=== PATIENT | female | born 1970 ===

== ENCOUNTER 2020-06-29 08:02 | Day surgery (SDC) | payer OTHER, SELFPAY ==
--- NOTE | 2020-06-28 10:31 | HO.ANESPROP2 ---
Documented by User: Shruthi Huddleston 06/28/20 13:49 HPI - Anesthesia Eval Consult details Narrative: 50yo F for Colonoscopy: screening, constipation PMFSH Past Medical History Medical History Constipation Hx of mammogram Family History Family History Father Patient's father is Lung cancer Diabetes Myocardial infarction Mother Hypertension Intestinal cancer Sister Lymphoma Patient's sister is Surgical History Surgical History History of esophagogastroduodenoscopy (EGD) History of loop electrical excision procedure (LEEP) Hx of breast biopsy Hx of colonoscopy Hx of hemorrhoidectomy S/P bilateral breast lumpectomy History of Problems with Anesthesia: No Social History Social History Smoking Status: Never smoker Second Hand Smoke Exposure: No Use of substances other than those prescribed or required for medical reasons: No Have you been hit, kicked, punched, or otherwise hurt by someone within the past year? If so, by whom?: No Advance Directives: No Advance Directives Information Provided: No Meds Allergies Allergy/AdvReac Type Severity Reaction Status Date / Time No Known Allergies Allergy Unverified 05/27/20 15:35 Home Medications Medication Instructions Recorded Confirmed Type linaclotide [Linzess] 1 cap PO DAILY 06/28/20 06/28/20 History Exam Exam Date and Time: June 28, 2020 1031 Assessment and Plan Assessment Anesthesia Assessment: Chart Reviewed Documented by User: Jemma Vance 06/29/20 09:28 PMFSH Past Medical History Medical History Constipation Hx of mammogram Family History Family History Father Patient's father is Lung cancer Diabetes Myocardial infarction Mother Hypertension Intestinal cancer Sister Lymphoma Patient's sister is Family history of problems with anesthesia: No Surgical History Surgical History History of esophagogastroduodenoscopy (EGD) History of loop electrical excision procedure (LEEP) Hx of breast biopsy Hx of colonoscopy Hx of hemorrhoidectomy S/P bilateral breast lumpectomy History of Problems with Anesthesia: No Social History Social History Smoking Status: Never smoker Second Hand Smoke Exposure: No Use of substances other than those prescribed or required for medical reasons: No Have you been hit, kicked, punched, or otherwise hurt by someone within the past year? If so, by whom?: No Advance Directives: No Advance Directives Information Provided: No Meds Allergies Allergy/AdvReac Type Severity Reaction Status Date / Time No Known Allergies Allergy Unverified 05/27/20 15:35 Home Medications Medication Instructions Recorded Confirmed Type linaclotide [Linzess] 1 cap PO DAILY 06/28/20 06/28/20 History Exam Height,Weight and Vital Signs: Vital Signs Temp Pulse Resp BP Pulse Ox 06/29/20 08:37 97.0 F 64 16 93/56 L 99 Pertinent Lab Results Pertinent Lab Results: 06/29/20 08:29 Ur Preg Test Stat Laboratory Last Values Urine Test NEGATIVE (NEGATIVE) 06/29/20 08:29 Airway Mallampati Class: II TM Dist: >3cm Neck ROM: Full Heart: RRR Lungs: CTAB Assessment and Plan Assessment Anesthesia Assessment: Anesthesia Plan Discussed and Chart Reviewed Final Anesthetic Review NPO: Yes ASA Class: II Final Preanesthetic Review: No Changes in Pt Med Stat, Meds/Allgs Chart Reviewed, Consent Obtained/Reviewed and Anes Risks/Benef Reviewed Patient Risk: Low Procedure Risk: Low Anesthetic Plan Anesthetic Plan: MAC: Disposition: Standard PACU
[2020-06-29 08:37] VITALS: BP 93/56; PULSE 64; RESP 16; TEMP 36.1; O2SAT 99; BMI 24.5
[2020-06-29 08:45] LABS: UPreg QC Valid YES; Urine Pregnancy NEGATIVE (NEGATIVE)
[2020-06-29] MEDS: Lactated Ringers 1,000 ML 100 ML IVCONT (08:51)
--- NOTE | 2020-06-29 10:12 | MHC.SHP ---
Pre-Procedural Eval Section A The patient is an INPATIENT: No The History & Physical has been completed within 30 days and I have reviewed it.: No Section B Chief Complaint: Screening Details of Present Illness: Colon cancer screening--No clinical changes from original preop Relevant Family History (Specify if Yes): Yes Relevant Social History: None Present Medications: see Short Stay Collaborative assessment Medical History: Significant History (GERD, Constipation) History of Previous Operations: Relevant previous surgery/procedure and date(s) ([place] 2019 incomplete due to poor prep) Allergies: Allergies Allergy/AdvReac Type Severity Reaction Status Date / Time No Known Allergies Allergy Unverified 05/27/20 15:35 Review of Systems Sugical H&P ROS: Negative: Constitution, Cardiovascular, Respiratory, Neurological, Psychiatric, Hem-Onc, Allergic/Immunologic, Musculoskeletal and Endocrine and Yes, Specify: Gastrointestinal (left sided discomfort, constipation) Exam Surgical H&P Exam: Normal: HEENT, Normal: Heart, Normal: Lungs, Normal: Abdomen and Normal: Skin Plan Diagnosis/Plan: Unchanged (Colon cancer screening--Colonoscopy) Patient has been examined and remains a candidate for the planned procedure YES
[2020-06-29 10:46] VITALS: BP 94/56; PULSE 85; RESP 12; TEMP 36.8; O2SAT 100
--- NOTE | 2020-06-29 10:48 | PM.PROC ---
Brief Operative Note Date of procedure: 06/29/20 Pre-op diagnosis: Colon cancer screening Post-op diagnosis: other (Normal exam; previous hx of rectal bleeding and incomplete exam.) Procedure: COLNOSCOPY Anesthesia: MAC (IVY Sesay) Surgeon: Simi Amor Estimated blood loss (mL): 0 Pathology: none sent Condition: stable Disposition: PACU
--- NOTE | 2020-06-29 10:57 | MHC.SHP ---
Pre-Procedural Eval Section A The History & Physical has been completed within 30 days and I have reviewed it.: No Section B Chief Complaint: Screening Details of Present Illness: Colon cancer screening; Hx of Rectal Carcinoid Relevant Family History (Specify if Yes): No Relevant Social History: None Present Medications: see Short Stay Collaborative assessment Medical History: Significant History (diabetes, hypothyroid on replacement therapy) History of Previous Operations: Relevant previous surgery/procedure and date(s) (-2013) Allergies: Allergies Allergy/AdvReac Type Severity Reaction Status Date / Time No Known Allergies Allergy Unverified 05/27/20 15:35 Review of Systems Sugical H&P ROS: Negative: Constitution, Cardiovascular, Respiratory, Neurological, Gastrointestinal and Musculoskeletal Exam Surgical H&P Exam: Normal: HEENT, Normal: Heart, Normal: Lungs, Normal: Extremities and Normal: Skin Plan Diagnosis/Plan: Unchanged Patient has been examined and remains a candidate for the planned procedure--yes
[2020-06-29 11:01] VITALS: BP 93/58; PULSE 82; RESP 17; TEMP 36.8; O2SAT 99
[2020-06-29 11:14] VITALS: BP 92/58; PULSE 78; RESP 17; TEMP 37.3; O2SAT 99
--- NOTE | 2020-06-30 10:11 | OP_ITS ---
SURGEON: Simi Amor MD PREOPERATIVE DIAGNOSIS: POSTOPERATIVE DIAGNOSIS: Negative exam to the level of the cecum. PROCEDURE PERFORMED: Colonoscopy. ESTIMATED BLOOD LOSS: None. COMPLICATIONS: No complications. ANESTHESIA: Monitored ANESTHESIOLOGIST: Skyler Dallas CRNA ASSISTANTS:NONE SPECIMENS: No specimens removed. PREOPERATIVE DIAGNOSES: Colon cancer screening, left-sided pain. The patient has noted that the pain is less intense when her bowels move completely. This is a repeat exam due to poor prep on the last attempt at colon cancer screening. MANUAL MACHINIST: Dr. Amor. FINDINGS: Digital rectal exam revealed no specific lesions. Video colonoscope was introduced without difficulty. It was navigated into the rectosigmoid, sigmoid. There was some degree of telescoping of the colon in the region of the rectosigmoid, sigmoid (of note, this is the area the patient has some discomfort on a fairly regular basis). The scope advanced slowly into the descending, transverse, ascending colon down into the cecal cap. Appendiceal orifice was seen. Ileocecal valve was well seen. Preparation was excellent. Good mucosal detail was had on this exam. No significant lesions were appreciated. Anorectal verge was clear. PLAN: Current recommendations for repeat asymptomatic screening in a patient with a variety of clinical symptoms and a history of constipation tendency should be closer to 7 years. She will be re-seen in the office if she wishes to further discuss management of her delayed transit constipation tendency. GRAFT OR IMPLANTS: No grafts or implants. CONDITION: Postprocedure, stable. Simi Amor MD MEN/MODL / [id number] MTDD
== END 2020-06-29 12:03 | disposition home or self-care (01) ==
PROVIDERS: Nurse Practitioner; PCP Internal Medicine; Visit Provider Internal Medicine Gastroenterology
PROC: 0DJD8ZZ Inspection of Lower Intestinal Tract, Via Natural or Artificial Opening Endoscopic (ICD-10-PCS; CPT 45378; principal; 2020-06-29 09:10)
DX: Z12.11 Encounter for screening for malignant neoplasm of colon (principal)
CPT/HCPCS: 45378; 81025

== ENCOUNTER 2020-07-21 15:51 | Outpatient (REF) | payer OTHER, SELFPAY | END 2020-07-21 15:52 | disposition home or self-care (01) | LOC: HO.LAB 15:51 | PROVIDERS: PCP Internal Medicine; Visit Provider Internal Medicine | DX: Z20.828 Contact with and (suspected) exposure to other viral communicable diseases (principal) | CPT/HCPCS: C9803; U0003 ==

== ENCOUNTER → 2020-07-28 08:39 | Outpatient (BNVA) | payer OTHER, SELFPAY | PROVIDERS: PCP Internal Medicine; Referring Provider Internal Medicine; Visit Provider Nurse Practitioner | DX: Z76.89 Persons encountering health services in other specified circumstances (principal) ==

== ENCOUNTER 2020-08-25 16:40 | Outpatient (REF) | payer OTHER, SELFPAY ==
--- NOTE | 2020-08-25 | MM_ITS ---
EXAMINATION: MM SCREENING DIGITAL BREAST TOMOSYNTHESIS, BILATERAL CLINICAL INFORMATION: Screening. Asymptomatic. No known family history breast cancer. The lifetime risk of breast cancer based on the Tyrer-Cuzick Model is 6%. COMPARISON: Mammography: 07/19/2019, 06/29/2018, 06/09/2017, 10/15/2015; bilateral diagnostic breast ultrasound 10/15/2015. TECHNIQUE: Digital breast tomosynthesis is performed in both the craniocaudal and mediolateral oblique views along with computer-aided detection (CAD). Synthesized 2D images are generated from the tomosynthesis. FINDINGS: There are scattered areas of fibroglandular density (ACR BI-RADS breast composition Category b). There are scattered bilateral asymmetries similar to prior studies including nodular asymmetry 3:30 o'clock left breast and regional asymmetry inferior medial right breast. There is no developing density or interval mass or architectural abnormality. No abnormal calcifications. There are some dermal densities right axilla representing digital processing artifact and/or deodorant artifact MLO view. MM/MM tomosynthesis screening BI IMPRESSION: No significant changes from prior studies. ASSESSMENT: BI-RADS 2: Benign RECOMMENDATION: Routine annual mammography screening. This patient's information was entered into a reminder system with a target due date for their next mammogram.
== END 2020-08-25 16:41 | disposition home or self-care (01) ==
LOC: HO.MAMMO 16:40
PROVIDERS: PCP Internal Medicine; Visit Provider Internal Medicine
DX: Z12.31 Encounter for screening mammogram for malignant neoplasm of breast (principal)
CPT/HCPCS: 77063; 77067

== ENCOUNTER 2020-08-27 08:10 | Outpatient (REF) | payer OTHER, SELFPAY ==
[2020-08-27 11:05] LABS: HBsAGNum1 0.18 S/CO (0.00-0.99); HIV AB/AG Nonreactive (Nonreactive); HIV Num 1 0.05 S/CO (0.00-0.99); Hepatitis B Surface Antigen Negative (Negative)
[2020-08-27 12:04] LABS: Syphilis Screen Nonreactive (Nonreactive)
[2020-08-29 11:59] LABS: BV Int Neg Control Negative (Negative); BV Int Pos Control Positive (Positive)
[2020-09-01 03:48] LABS: HPV mRNA E6/E7 rflx Not Detected (Not Detected)
[2020-09-19 09:16] LABS: CT PCR NOT DETECTED (Not Detect.); NG PCR NOT DETECTED (Not Detect.)
== END 2020-08-27 08:11 | disposition home or self-care (01) ==
LOC: HO.LAB 08:10
PROVIDERS: PCP Internal Medicine; Referring Provider Internal Medicine; Visit Provider Obstetrics & Gynecology
DX: Z01.419 Encounter for gynecological examination (general) (routine) without abnormal findings (principal)
CPT/HCPCS: 86780; 87340; 87389; 87480; 87491; 87510; 87591; 87624; 87625; 87660; 88142

== ENCOUNTER → 2020-09-21 08:48 | Outpatient (BNVA) | payer OTHER, SELFPAY | PROVIDERS: PCP Internal Medicine; Visit Provider Obstetrics & Gynecology | DX: Z76.89 Persons encountering health services in other specified circumstances (principal) ==

== ENCOUNTER 2020-09-21 15:18 | Outpatient (REF) | payer OTHER, SELFPAY ==
--- NOTE | 2020-09-21 15:24 | US_ITS ---
EXAMINATION: US PELVIS COMPLETE CLINICAL INFORMATION: Pelvic and perineal pain. Vaginal bleeding. COMPARISON: None TECHNIQUE: Transabdominal and transvaginal ultrasound pelvis is performed. FINDINGS: On transabdominal ultrasound the uterus is anteverted measuring 7.9 cm in length, 4.0 cm in AP and 5.5 cm in transverse dimension. Endometrial thickness measures 0.9 cm. There are 3 hyperechoic foci along the endometrial cavity suspicious for small polyps. Endometrial thickness is 0.9 cm. The right ovary measures 3.3 x 2.3 x 1.7 cm and volume 6.8 mL and appears unremarkable. Previously right ovary measured 2.4 x 1.7 x 2.7 cm and volume 5.5 mL. Left ovary measures 2.9 x 3.0 x 1.6 cm and volume 7.3 mL. Previously left ovary measured 3.0 x 1.8 x 2.7 cm and volume 7.6 mL. There is no free fluid in the cul-de-sac. US/US transvaginal IMPRESSION: Probable small polyps within the endometrial canal. Recommend hysterosonogram. The rest of the uterus is unremarkable. Ovaries unremarkable. There is no free fluid in the cul-de-sac.
--- NOTE | 2020-09-21 15:24 | US_ITS ---
EXAMINATION: US PELVIS COMPLETE CLINICAL INFORMATION: Pelvic and perineal pain. Vaginal bleeding. COMPARISON: None TECHNIQUE: Transabdominal and transvaginal ultrasound pelvis is performed. FINDINGS: On transabdominal ultrasound the uterus is anteverted measuring 7.9 cm in length, 4.0 cm in AP and 5.5 cm in transverse dimension. Endometrial thickness measures 0.9 cm. There are 3 hyperechoic foci along the endometrial cavity suspicious for small polyps. Endometrial thickness is 0.9 cm. The right ovary measures 3.3 x 2.3 x 1.7 cm and volume 6.8 mL and appears unremarkable. Previously right ovary measured 2.4 x 1.7 x 2.7 cm and volume 5.5 mL. Left ovary measures 2.9 x 3.0 x 1.6 cm and volume 7.3 mL. Previously left ovary measured 3.0 x 1.8 x 2.7 cm and volume 7.6 mL. There is no free fluid in the cul-de-sac. US/US pelvic complete IMPRESSION: Probable small polyps within the endometrial canal. Recommend hysterosonogram. The rest of the uterus is unremarkable. Ovaries unremarkable. There is no free fluid in the cul-de-sac.
== END 2020-09-21 15:19 | disposition home or self-care (01) ==
LOC: HO.US 15:18
PROVIDERS: PCP Internal Medicine; Visit Provider Obstetrics & Gynecology
DX: R10.2 Pelvic and perineal pain (principal)
CPT/HCPCS: 76830; 76856

== ENCOUNTER → 2020-09-24 11:44 | Outpatient (BNVA) | payer OTHER, SELFPAY | PROVIDERS: Visit Provider Obstetrics & Gynecology | DX: Z76.89 Persons encountering health services in other specified circumstances (principal) ==

== ENCOUNTER 2020-10-21 06:04 | Day surgery (SDC) | payer OTHER, SELFPAY ==
[2020-10-15 10:57] VITALS: BMI 23.8
--- NOTE | 2020-10-20 12:11 | HO.ANESPROP2 ---
Documented by User: Shruthi Huddleston 10/20/20 12:13 HPI - Anesthesia Eval Consult details Narrative: 50yo F for D&C Diagnostic Hysteroscopy with myosure PMFSH Active Problems Active Problems: All Active Problems (Updated 07/28/20 @ 09:26 by LORRI Cortes) Family history of colon cancer (Acute) Chronic idiopathic constipation (Acute) Past Medical History Medical History Hx of mammogram Family History Family History Father Patient's father is Lung cancer Diabetes Myocardial infarction Mother Hypertension Intestinal cancer Bladder cancer Cholangiocarcinoma Sister Lymphoma Patient's sister is Surgical History Surgical History History of esophagogastroduodenoscopy (EGD) History of loop electrical excision procedure (LEEP) Hx of breast biopsy Hx of colonoscopy Hx of hemorrhoidectomy S/P bilateral breast lumpectomy Social History Social History Household Members: None Alcohol intake: current Alcohol intake frequency: holidays/special occasions only Smoking Status: Never smoker Second Hand Smoke Exposure: No Use of substances other than those prescribed or required for medical reasons: No Have you been hit, kicked, punched, or otherwise hurt by someone within the past year? If so, by whom?: No Advance Directives: No Advance Directives Information Provided: No Advance Directives on File: No Meds Allergies Allergy/AdvReac Type Severity Reaction Status Date / Time No Known Allergies Allergy Verified 09/24/20 11:45 Exam Exam Date and Time: October 20, 2020 1211 Height,Weight and Vital Signs: Height 5 ft 1 in Weight 57.153 kg Assessment and Plan Assessment Anesthesia Assessment: Chart Reviewed Documented by User: Isis Caba 10/21/20 07:41 PMFSH Past Medical History Medical History Hx of mammogram Family History Family History Father Patient's father is Lung cancer Diabetes Myocardial infarction Mother Hypertension Intestinal cancer Bladder cancer Cholangiocarcinoma Sister Lymphoma Patient's sister is Surgical History Surgical History History of esophagogastroduodenoscopy (EGD) History of loop electrical excision procedure (LEEP) Hx of breast biopsy Hx of colonoscopy Hx of hemorrhoidectomy S/P bilateral breast lumpectomy Social History Social History Household Members: None Alcohol intake: current Alcohol intake frequency: holidays/special occasions only Smoking Status: Never smoker Second Hand Smoke Exposure: No Use of substances other than those prescribed or required for medical reasons: No Have you been hit, kicked, punched, or otherwise hurt by someone within the past year? If so, by whom?: No Advance Directives: No Advance Directives Information Provided: No Advance Directives on File: No Meds Allergies Allergy/AdvReac Type Severity Reaction Status Date / Time No Known Allergies Allergy Verified 09/24/20 11:45 Exam Airway Mallampati Class: II TM Dist: >3cm Neck ROM: Full Assessment and Plan Assessment Anesthesia Assessment: Anesthesia Plan Discussed and Chart Reviewed Final Anesthetic Review NPO: Yes ASA Class: I Final Preanesthetic Review: No Changes in Pt Med Stat, Meds/Allgs Chart Reviewed, Consent Obtained/Reviewed and Anes Risks/Benef Reviewed Patient Risk: Low Procedure Risk: Low Assessment/Block/Sedation in SS: Assess/Block/Sedation-SS Anesthetic Plan Anesthetic Plan: MAC: Disposition: Standard PACU
[2020-10-21 06:21] VITALS: BP 101/72; PULSE 63; RESP 18; TEMP 36.8; O2SAT 98
[2020-10-21 07:05] LABS: HCG Quantitative < 2 mIU/mL
--- NOTE | 2020-10-21 07:23 | MHC.SHP ---
Pre-Procedural Eval Section A The patient is an INPATIENT: No Changes since office visit: No Cold of Flu in the past 2 weeks, No New Medical Problems, No Changes in Medication and No Patient answered all questions The History & Physical has been completed within 30 days and I have reviewed it.: Yes Section B Chief Complaint: left lower quadrant pain Allergies: Allergies Allergy/AdvReac Type Severity Reaction Status Date / Time No Known Allergies Allergy Verified 09/24/20 11:45 Plan I have reviewed the history and physical and performed a pertinent physical examination on my patient. No changes have occurred unless specified.
[2020-10-21] MEDS: Lactated Ringers 1,000 ML 50 ML IVCONT (07:26)
[2020-10-21 08:00] VITALS: BP 100/68; PULSE 70; RESP 16; TEMP 36.7; O2SAT 94
[2020-10-21] MEDS: Acetaminophen 325 MG TABLET 650 MG PO (08:11)
[2020-10-21] MEDS: oxyCODONE HCl Immed Release 5 MG TABLET PO (08:12)
--- NOTE | 2020-10-21 08:12 | W.PM.OPN ---
Operative Note Operative Note Date of Service: 10/21/20 Narrative: Ms. Loving is a 50 year old with findings suspicious for endometrial polyps on US. She presents today for hysteroscopy d&c for diagnosis and treatment. Surgical Risks: The patient was informed of the risks and benefits of a hysteroscopy with dilation and curettage. Risks included but were not limited to bleeding, infection, injury to the vulva, vagina, or cervix, and uterine perforation with possible need for further surgery. The patient expressed understanding of the risks involved, all questions were answered, and the patient consented to the procedure. The patient was taken to the operating room where a time out was confirmed to confirm correct patient and correct procedure. Adequate IV sedation was established. The patient was then positioned on the operating table in the dorsal lithotomy position with her legs supported using stirrups. All pressure points were padded and a warm blanket was placed to maintain control of core body temperature. The patient was then prepped and draped in the usual sterile fashion. A straight catheter was inserted into the bladder and minimal urine was obtained as the patient had voided just prior to the procedure. A bivalve speculum was then inserted into the vagina. The anterior lip of the cervix was visualized and grasped using a single tooth tenaculum. The cervix was adequately dilated using Hunt dilators for the introduction of the hysteroscope. The hysteroscope was introduced under direct visualization using normal saline solution as the distending media. The hysteroscope was advanced to the fundus and the entire uterine cavity was inspected. No discrete polyps or fibroids were noted; however, the anterior wall was coated with polypoid appearing tissue. []The myosure device was advanced to the fundus and sharp curettage was performed of the anterior wall. The hysteroscope with myosure retracted within the sleeve was then removed and a sharp curetting was performed starting at the 12 o?clock position and rotating a total of 360 degrees in order to cover all surfaces. Endometrial tissue was obtained and was sent to pathology. Following the curetting, good hemostasis was noted. The single-tooth tenaculum was removed from the anterior lip of the cervix and hemostasis was also noted at the tenaculum puncture sites. The speculum was then removed from the vagina. At the end of the procedure, all needle, sponge, and instrument counts were noted to be correct x2. The patient was transferred to the recovery room in stable condition.
[2020-10-21] MEDS: ondansetron HCL 4 MG/2 ML VIAL IVPUSH (08:13)
[2020-10-21 08:15] VITALS: BP 100/73; PULSE 67; RESP 16; O2SAT 96
[2020-10-21 08:30] VITALS: BP 103/70; PULSE 60; RESP 16; O2SAT 97
[2020-10-21 08:45] VITALS: BP 96/60; PULSE 52; RESP 16; TEMP 36.7; O2SAT 98
[2020-10-21 08:59] VITALS: BP 92/56; PULSE 53; RESP 16; TEMP 36.7; O2SAT 98
== END 2020-10-21 09:18 | disposition home or self-care (01) ==
LOC: HO.SSS 06:05
PROVIDERS: PCP Internal Medicine; Visit Provider Obstetrics & Gynecology
PROC: 0UDB8ZX Extraction of Endometrium, Via Natural or Artificial Opening Endoscopic, Diagnostic (ICD-10-PCS; CPT 58558; principal; 2020-10-21 07:30)
DX: N84.0 Polyp of corpus uteri (principal); Z80.52 Family history of malignant neoplasm of bladder; Z80.0 Family history of malignant neoplasm of digestive organs; Z85.09 Personal history of malignant neoplasm of other digestive organs; Z80.1 Family history of malignant neoplasm of trachea, bronchus and lung; Z80.7 Family history of other malignant neoplasms of lymphoid, hematopoietic and related tissues
CPT/HCPCS: 58558; 36415; 84702; 88305; J1885; J2405; J3010

== ENCOUNTER 2021-01-31 09:54 | Emergency (ER) | payer OTHER, SELFPAY ==
--- NOTE | ~2021-01-31 | XR_ITS ---
EXAMINATION: XR CHEST CLINICAL INFORMATION: Chest pain. COMPARISON: None TECHNIQUE: Frontal view of the chest was obtained. FINDINGS: No significant abnormality is noted involving the heart, lungs, mediastinum, bony thorax or soft tissues. XR/XR chest 1V IMPRESSION: Unremarkable chest exam
[2021-01-31 10:00] VITALS: BP 123/73; PULSE 56; O2SAT 100
[2021-01-31 10:15] VITALS: BP 98/77; PULSE 54; RESP 18; TEMP 36.4; O2SAT 100; BMI 25.0
--- NOTE | 2021-01-31 10:24 | ED_ITS ---
HPI - Chest Pain General Chief Complaint: Chest Pain Stated Complaint: CHEST PAIN X'S 3 WEKS Time Seen by Provider: 01/31/21 10:24 Source: patient Mode of arrival: EMS Limitations: no limitations History of Present Illness HPI narrative: Patient with chest pain for weeks, at night while lying down with radiation into the back. Some dyspepsia. Today while driving to work patient had chest pain going into the left arm. patient exercises frequently with no chest pain. Mother and father did not have CAD, she has a sister who is a diabetic that had a stroke complaint: chest heaviness Onset (ago): minute(s) Timing of current episode: constant Prior episodes: Yes Onset: during rest Pain location: substernal Pain radiation: left arm Severity: moderate Quality: tightness Relieving factors: nothing Exacerbating factors: nothing Treatment prior to arrival: aspirin Risk Factors Coronary artery disease risk factors: none Related Data Previous Rx's Medication Instructions Recorded pantoprazole [Protonix] 40 mg PO DAILY #20 tab 01/31/21 Allergies Allergy/AdvReac Type Severity Reaction Status Date / Time No Known Allergies Allergy Verified 09/24/20 11:45 Review of Systems Constitutional: Constitutional: Reports no additional constitutional com plaints Eyes: Eyes: Reports no additional eye complaints ENT: Denies dizziness Cardiovascular: Cardiovascular: Reports no additional cardiovascular complaints Respiratory: Respiratory: Reports as per HPI Gastrointestinal: Gastrointestinal: Reports no additional gastrointestinal complaints Genitourinary: Genitourinary: Reports no additional female genitourinary complaints Musculoskeletal: Musculoskeletal: Reports no additional musculoskeletal complaints Integumentary/Breasts: Skin/Breast: Denies rash Neurologic: Reports system reviewed and no additional complaints, except as documented, Denies dizziness and Denies Sensory deficit (Neuro) Psychiatric: Psychiatric: Denies anxiety [facility] Past Medical History Medical History Hx of mammogram Surgical History History of esophagogastroduodenoscopy (EGD) History of hysteroscopy History of loop electrical excision procedure (LEEP) Hx of breast biopsy Hx of colonoscopy Hx of hemorrhoidectomy S/P bilateral breast lumpectomy Family History Family History Father Patient's father is Lung cancer Diabetes Myocardial infarction Mother Hypertension Intestinal cancer Bladder cancer Cholangiocarcinoma Sister Lymphoma Patient's sister is Social History Social History Household Members: None Alcohol intake: current Alcohol intake frequency: holidays/special occasions only Smoking Status: Never smoker Second Hand Smoke Exposure: No Advance Directives: No Advance Directives Information Provided: No Patient : No Physical Exam Vital Signs: Vital Signs: Last Vital Signs Temp 97.5 F 01/31/21 10:15 Pulse 54 01/31/21 10:15 Resp 18 01/31/21 10:15 BP 98/77 01/31/21 10:15 Pulse Ox 100 01/31/21 10:15 Body Mass Index 25.0 Const: General: healthy appearing Nutritional Appearance: average body habitus Orientation/consciousness: oriented to person and patient oriented x3 Limitations: no limitations HENMT: Head: Yes normal to inspection Ears: external ears normal General nose exam: Normal external nose present Mouth: Normal oral and palatal mucosa present and oropharynx normal Throat: Yes posterior oropharynx normal Eyes: General: appearance normal, both eyes and all related structures Neck: Other: supple Neck: Yes normal visual inspection Chest: Chest palpation & inspection: normal inspection of the chest Resp: Auscultation: clear to auscultation bilaterally Cardio: Jugular venous distension: no JVD Rate: regular rate Rhythm: r egular rhythm Heart sounds: S1 normal heart sound present and S2 normal heart sound present GI: Inspection: Yes normal to inspection Palpation (GI): Soft to palpation, nontender and No hepatosplenomegaly present Auscultation: normal bowel sounds : General: Yes no CVA tenderness Back/Spine/Pelvis: Back: no CVA tenderness Skin: General skin exam: no rashes or lesions noted Neuro: General: oriented to person and patient oriented x3 Cranial nerves: Yes CN's II-XII intact bilaterally Motor exam (neuro): 5/5 motor strength present throughout Sensory Exam: No Sensory deficit (Neuro) Extrem: General: Yes normal to inspection Psych: Appearance: grossly normal Course Course Course Narrative: with weeks of pain mostly at night with lying down and pain into the back, I suspect a GI and esophagus issue. EKG normal, troponin negative. Will place patient on PPI and have them follow up with PMD in next couple of days. MDM - Chest Pain Lab Data Result diagrams: 01/31/21 10:55 01/31/21 10:54 Labs: Lab Results 01/31/21 01/31/21 01/31/21 Range/Units 10:54 10:54 10:55 WBC 7.7 (4.8-10.8) X10*3/uL RBC 4.51 (4.20-5.50) X10*6/uL Hgb 12.9 (12.0-16.0) g/dl Hct 39.5 (37-47) % MCV 87.6 (80-98) fL MCH 28.6 (27.0-33.0) pg MCHC 32.7 (31.0-35.0) g/dl RDW 13.2 (11.0-16.0) % Plt Count 245 (160-400) X10*3/uL MPV 10.5 (9.4-12.3) fL Immature Gran % (Auto) 0.3 (0.0-0.4) % Neut % (Auto) 65.0 (45-73) % Lymph % (Auto) 23.8 (20-40) % Cam[place] % (Auto) 5.8 (2-11) % Eos % (Auto) 4.3 H (0-4) % Baso % (Auto) 0.8 (0-2) % Lymph # (Auto) 1.8 (1.2-4.9) X10*3/uL [place] # (Auto) 0.5 (0.1-1.2) X10*3/uL Eos # (Auto) 0.3 (0.0-0.4) X10*3/uL Baso # (Auto) 0.1 (0.0-0.2) X10*3/uL Abs Immat Gran (auto) 0.02 (0.00-0.03) X10*3/uL Absolute Neuts (auto) 5.0 (2.0-8.3) X10*3/uL Absolute Nucleated RBC 0.000 (0.0-0.012) X10*3/uL Nucleated RBC % (auto) 0.0 (0.0-0.2) /100WBC Sodium 138 (135-145) mmol/L Potassium 4.4 (3.3-5.1) mmol/L Chloride 106 (96-108) mmol/L Carbon Dioxide 25 (22-29) mmol/L Anion Gap 11 L (12-20) BUN 14 (9-16) mg/dL Creatinine 0.72 (0.5-1.4) mg/dL Estim Creat Clear Calc 85.9 Estimated GFR > 60 Random Glucose 79 (60-115) mg/dL Calcium 8.9 (8.4-10.2) mg/dL Troponin I High Sens < 3.5 (<3.5-17.0) ng/L ECG Data ECG #1: Attestation: I personally reviewed and interpreted this ECG as follows: Interpretation: normal sinus rate 50, bradycardia, no st or twave changes Discharge Plan Discharge Clinical Impression: Gastritis and duodenitis Chest pain Qualifiers: Chest pain type: unspecified Qualified Code(s): R07.9 - Chest pain, unspecified Patient Disposition: Home, Self-Care Instructions: Chest Pain (ED), Gastritis (ED) Prescriptions: New pantoprazole [Protonix] 40 mg tablet,delayed release (DR/EC) 40 mg PO DAILY Qty: 20 RF: 0 Referrals: Po,Dot Victor MD [Primary Care Provider] - 2 days Stand Alone Forms: Work/School Release
--- NOTE | 2021-01-31 10:28 | ECG_ITS ---
Test Reason : CHEST PAIN Blood Pressure : / mmHG Vent. Rate : 052 BPM Atrial Rate : 052 BPM P-R Int : 116 ms QRS Dur : 074 ms QT Int : 446 ms P-R-T Axes : 066 016 026 degrees QTc Int : 414 ms Sinus bradycardia Septal infarct , age undetermined Abnormal ECG When compared with ECG of 09-OCT-2005 22:47, Septal infarct is now Present Referred By: Frank Robb Electronically Signed By:BHUPINDER SOLORIO
[2021-01-31 10:59] LABS: MANUAL DIFF FLAG NO
[2021-01-31 11:02] LABS: Basophils Absolute Auto 0.1 X10*3/uL (0.0-0.2); Basophils Percent Auto 0.8 % (0-2); Eosinophils Absolute Auto 0.3 X10*3/uL (0.0-0.4); Eosinophils Percent Auto 4.3 % (0-4); Hematocrit 39.5 % (37-47); Hemoglobin 12.9 g/dl (12.0-16.0); Imm Gran Abs Auto 0.02 X10*3/uL (0.00-0.03); Imm Gran Pct Auto 0.3 % (0.0-0.4); Lymphocytes Absolute Auto 1.8 X10*3/uL (1.2-4.9); Lymphocytes Percent Auto 23.8 % (20-40); Mean Corpuscular HGB Conc 32.7 g/dl (31.0-35.0); Mean Corpuscular Hemoglobin 28.6 pg (27.0-33.0); Mean Corpuscular Volume 87.6 fL (80-98); Mean Platelet Volume 10.5 fL (9.4-12.3); Monocytes Absolute Auto 0.5 X10*3/uL (0.1-1.2); Monocytes Percent Auto 5.8 % (2-11); Platelet Count 245 X10*3/uL (160-400); Red Blood Count 4.51 X10*6/uL (4.20-5.50); Red Cell Distribution Width 13.2 % (11.0-16.0); White Blood Count 7.7 X10*3/uL (4.8-10.8)
[2021-01-31 11:27] LABS: Anion Gap 11 (12-20); Blood Urea Nitrogen 14 mg/dL (9-16); Calcium 8.9 mg/dL (8.4-10.2); Carbon Dioxide 25 mmol/L (22-29); Chloride 106 mmol/L (96-108); Creatinine Clr Calc Pharmacy 85.9; Estimated Glomerular Filt Rate > 60; Glucose Random 79 mg/dL (60-115); Potassium 4.4 mmol/L (3.3-5.1); Sodium 138 mmol/L (135-145)
[2021-01-31 11:34] LABS: Troponin-I High Sensitivity < 3.5 ng/L (<3.5-17.0)
== END 2021-01-31 13:19 | disposition home or self-care (01) ==
PROVIDERS: Emergency Provider Emergency Medicine; PCP Internal Medicine
DX: R07.9 Chest pain, unspecified (principal); K52.81 Eosinophilic gastritis or gastroenteritis; R00.1 Bradycardia, unspecified
CPT/HCPCS: 36415; 71045; 80048; 84484; 85025; 93005; 99283

== ENCOUNTER 2021-06-14 13:07 | Outpatient (REF) | payer OTHER, SELFPAY ==
[2021-06-14 13:31] LABS: MANUAL DIFF FLAG NO
[2021-06-14 13:55] LABS: Basophils Absolute Auto 0.1 X10*3/uL (0.0-0.2); Basophils Percent Auto 0.8 % (0-2); Eosinophils Absolute Auto 0.2 X10*3/uL (0.0-0.4); Eosinophils Percent Auto 2.9 % (0-4); Hemoglobin 13.5 g/dl (12.0-16.0); Imm Gran Abs Auto 0.02 X10*3/uL (0.00-0.03); Imm Gran Pct Auto 0.3 % (0.0-0.4); Lymphocytes Absolute Auto 1.7 X10*3/uL (1.2-4.9); Lymphocytes Percent Auto 22.8 % (20-40); Mean Corpuscular HGB Conc 32.1 g/dl (31.0-35.0); Mean Corpuscular Hemoglobin 28.2 pg (27.0-33.0); Mean Corpuscular Volume 87.7 fL (80-98); Mean Platelet Volume 11.2 fL (9.4-12.3); Monocytes Absolute Auto 0.5 X10*3/uL (0.1-1.2); Neutrophils Percent Auto 66.2 % (45-73); Platelet Count 263 X10*3/uL (160-400); Red Blood Count 4.79 X10*6/uL (4.20-5.50); Red Cell Distribution Width 12.8 % (11.0-16.0); White Blood Count 7.6 X10*3/uL (4.8-10.8)
[2021-06-14 14:00] LABS: Appearance Urine CLEAR; Color Urine YELLOW; Glucose Urine UA NEG (NEG); Leukocyte Esterase Urine NEG (NEG); Nitrite Urine NEG (NEG); Urine Blood NEG (NEG); Urine Ketones NEG (NEG); Urine Protein NEG (NEG-TRACE)
[2021-06-14 14:16] LABS: RBC Urine 0-2 /HPF (0); Squamous Epithelial Cell Urine 2+ /LPF
[2021-06-14 14:17] LABS: WBC Urine 0-2 /HPF (0-4)
[2021-06-14 14:26] LABS: Alanine Aminotransferase 11 U/L (0-31); Albumin Level 4.2 g/dL (3.5-5.0); Alkaline Phosphatase 71 U/L (39-117); Anion Gap 10 (12-20); Aspartate Amino Transferase 15 U/L (5-31); Bilirubin Total 0.4 mg/dL (0.0-1.0); Blood Urea Nitrogen 10 mg/dL (9-16); Carbon Dioxide 27 mmol/L (22-29); Chloride 106 mmol/L (96-108); Cholesterol 162 mg/dL; Estimated Glomerular Filt Rate > 60; Glucose Random 86 mg/dL (60-115); HDL Cholesterol 63 mg/dL; LDL Cholesterol Calculated 82 mg/dl; Potassium 4.6 mmol/L (3.3-5.1); Sodium 138 mmol/L (135-145); Total Protein 7.3 g/dL (6.5-8.0); Triglycerides 89 mg/dL
[2021-06-14 14:41] LABS: Free T4 (Free Thyroxine) 0.85 ng/dL (0.71-1.85); Vitamin D 25-OH Total 12.1 ng/mL (>30)
[2021-06-14 15:04] LABS: Folate 15.9 ng/mL (> or = 4.0); Vitamin B12 510 pg/mL (200-900)
== END 2021-06-14 13:08 | disposition home or self-care (01) ==
LOC: HO.LAB 13:07
PROVIDERS: PCP Internal Medicine; Visit Provider Internal Medicine
DX: K21.9 Gastro-esophageal reflux disease without esophagitis (principal); E78.00 Pure hypercholesterolemia, unspecified; R22.32 Localized swelling, mass and lump, left upper limb
CPT/HCPCS: 36415; 80053; 80061; 81001; 82306; 82607; 82746; 84439; 84443; 85025

== ENCOUNTER 2021-08-11 14:32 | Outpatient (REF) | payer OTHER, SELFPAY ==
[2021-08-13 06:01] LABS: CA-125 7 U/mL (<35)
== END 2021-08-11 14:33 | disposition home or self-care (01) ==
LOC: HO.LAB 14:32
PROVIDERS: PCP Internal Medicine; Visit Provider Physician Assistant
DX: Z80.41 Family history of malignant neoplasm of ovary (principal)
CPT/HCPCS: 36415; 86304

== ENCOUNTER 2021-08-27 08:13 | Outpatient (REF) | payer OTHER, SELFPAY | END 2021-08-27 08:14 | disposition home or self-care (01) | LOC: HO.MAMMO 08:13 | PROVIDERS: Visit Provider Internal Medicine | DX: Z13.89 Encounter for screening for other disorder (principal) ==

== ENCOUNTER 2021-08-29 13:22 | Outpatient (REF) | payer OTHER, SELFPAY ==
[2021-08-29 15:41] LABS: Syphilis Screen Nonreactive (Nonreactive)
[2021-08-30 04:35] LABS: ~HepC Num1 0.07 S/CO (0.00-0.79); ~Hepatitis C Antibody Nonreactive (Nonreactive)
[2021-08-30 04:39] LABS: HBc Num1 0.07 S/CO (0.00-0.79); HIV AB/AG Nonreactive (Nonreactive); HIV Num 1 0.07 S/CO (0.00-0.99); Hepatitis B Core Antibody Nonreactive (Nonreactive)
[2021-08-30 05:46] LABS: CT PCR NOT DETECTED (Not Detect.); NG PCR NOT DETECTED (Not Detect.)
[2021-08-30 09:32] LABS: BV Int Neg Control Negative (Negative); BV Int Pos Control Positive (Positive)
== END 2021-08-29 13:23 | disposition home or self-care (01) ==
LOC: HO.LAB 13:22
PROVIDERS: PCP Internal Medicine; Visit Provider Advanced Practice Midwife
DX: Z01.419 Encounter for gynecological examination (general) (routine) without abnormal findings (principal); R10.2 Pelvic and perineal pain; R30.0 Dysuria; N92.0 Excessive and frequent menstruation with regular cycle; R22.32 Localized swelling, mass and lump, left upper limb; Z11.3 Encounter for screening for infections with a predominantly sexual mode of transmission; Z11.8 Encounter for screening for other infectious and parasitic diseases; Z11.59 Encounter for screening for other viral diseases; Z11.4 Encounter for screening for human immunodeficiency virus [HIV]; Z80.41 Family history of malignant neoplasm of ovary; Z80.0 Family history of malignant neoplasm of digestive organs
CPT/HCPCS: 36415; 81003; 86704; 86780; 86803; 87389; 87480; 87491; 87510; 87591; 87660

== ENCOUNTER → 2021-08-30 15:15 | Outpatient (BNVA) | payer OTHER, SELFPAY | PROVIDERS: PCP Internal Medicine; Referring Provider Internal Medicine; Visit Provider Surgery ==

== ENCOUNTER → 2021-09-05 07:27 | Outpatient (REF) | payer OTHER, SELFPAY ==
--- NOTE | ~2021-09-05 | NM_ITS ---
EXAMINATION: RADIONUCLIDE SOLID FOOD GASTRIC EMPTYING 4-HOUR STUDY CLINICAL INFORMATION: Abdominal distention (gaseous). COMPARISON: No previous gastric emptying study is available for comparison. TECHNIQUE: A standard meal consisting of 4 oz of Egg Beaters brand equivalent tagged with 900 microcuries Tc-99m Sulfur Colloid, 8 oz water and 2 slices of toast with jelly was administered orally to the patient. Images were obtained using a dual head gamma camera in the anterior and posterior projections over of the stomach immediately post ingestion and at hourly intervals up to 4 hours post ingestion. The anterior and posterior counts at each time interval were averaged using the geometric mean and expressed as percentage of the immediate post ingestion counts. FINDINGS: There is good visualization of activity in the stomach immediately post ingestion. As the study progresses, there is good clearance of activity from the stomach and visualization of progressively increasing small bowel activity. By the end of the study, there is almost no retention noted in the stomach. Retention in the stomach at each time interval was: 1 hour 85% (normal 37%-90%) 2 hours 24% (normal 30%-60%) 3 hours 11% 4 hours 5% (normal 0%-10%) NM/NM gastric emptying study IMPRESSION: Normal 4-hour solid food gastric emptying study.
== END ==
LOC: HO.NUCMED 07:27
PROVIDERS: Visit Provider Physician Assistant
DX: R14.0 Abdominal distension (gaseous) (principal)
CPT/HCPCS: 78264; A9541

== ENCOUNTER 2021-09-21 13:23 | Outpatient (REF) | payer OTHER, SELFPAY ==
--- NOTE | ~2021-09-21 | MM_ITS ---
EXAMINATION: MM DIAGNOSTIC DIGITAL BREAST TOMOSYNTHESIS, BILATERAL US DIAGNOSTIC ULTRASOUND BREAST, LEFT CLINICAL INFORMATION: Fullness at junction upper arm and axilla noted by patient for several months. No breast palpable abnormality or discharge. Due for yearly. The lifetime risk of breast cancer based on the Tyrer-Cuzick Model is 7%. COMPARISON: Mammography: 08/25/2020, 07/19/2019, 06/29/2018, 06/09/2017, 10/15/2015 TECHNIQUE: Digital breast tomosynthesis is performed in both the craniocaudal and mediolateral oblique views along with computer-aided detection (CAD). Synthesized 2D images are generated from the tomosynthesis. Additional exaggerated left CC view is provided. Ultrasound left breast/axilla is performed using grayscale imaging and color Doppler without and with harmonics. Patient is able to point to area at time of imaging. FINDINGS: There are scattered areas of fibroglandular density (ACR BI-RADS breast composition Category b). There are scattered bilateral parenchymal asymmetries similar to prior studies. There is no developing density or interval mass or architectural abnormality. Small nodular asymmetry mid outer left breast and parenchymal asymmetry posterior inferior medial right breast are stable. There is no architectural abnormality. No abnormal calcifications. No adenopathy. Skin contours are smooth. Ultrasound demonstrates no lymphadenopathy left axilla. There is no cystic or solid mass. No skin thickening or edema tracking in soft tissue planes. Results are discussed with the patient at time of visit. If there is clinical concern for palpable fullness between left upper axilla and upper arm, further assessment with MRI may be considered. MM/MM tomosynthesis diagnostic BI IMPRESSION: 1. Mammography shows no significant changes from prior exams. 2. Unremarkable targeted left breast ultrasound. ASSESSMENT: BI-RADS 2: Benign RECOMMENDATION: 1. Patient should be managed based on the clinical impression. 2. Otherwise, routine annual screening mammography. This patient's information was entered into a reminder system with a target due date for their next mammogram.
== END 2021-09-21 13:24 | disposition home or self-care (01) ==
LOC: HO.MAMMO 13:23
PROVIDERS: PCP Internal Medicine; Visit Provider Advanced Practice Midwife
DX: R22.32 Localized swelling, mass and lump, left upper limb (principal)
CPT/HCPCS: 76642; 77062; 77066

== ENCOUNTER 2021-10-05 13:30 | Outpatient (REF) | payer OTHER, SELFPAY ==
--- NOTE | ~2021-10-05 | US_ITS ---
EXAMINATION: US PELVIS CLINICAL INFORMATION: Pain COMPARISON: Previous pelvic ultrasound most recent September 2020 TECHNIQUE: Ultrasound of the pelvis is performed using both transabdominal and transvaginal transducers along with Doppler. Transvaginal imaging is performed due to inadequate visualization transabdominally. FINDINGS: The uterus is anteverted and measures 10 x 4 x 5 cm in dimension. No focal uterine lesion is seen. Endometrial thickness is normal measuring 0.8 cm. The ovaries are normal-appearing. The right ovary measures 2 x 1.6 x 1.9 cm. Left ovary measures 2.8 x 1.4 x 1.3 cm. There is a small amount of fluid in the pelvis. US/US pelvic and transvaginal IMPRESSION: Normal pelvic ultrasound.
== END 2021-10-05 13:31 | disposition home or self-care (01) ==
LOC: HO.US 13:30
PROVIDERS: Visit Provider Advanced Practice Midwife
DX: R10.2 Pelvic and perineal pain (principal)
CPT/HCPCS: 76830; 76856

== ENCOUNTER → 2021-10-12 10:47 | Outpatient (BNVA) | payer OTHER, SELFPAY | PROVIDERS: PCP Internal Medicine; Visit Provider Advanced Practice Midwife ==

== ENCOUNTER 2021-11-04 09:12 | Outpatient (REF) | payer OTHER, SELFPAY | END 2021-11-04 09:13 | disposition home or self-care (01) | LOC: HO.LAB 09:12 | PROVIDERS: Visit Provider Advanced Practice Midwife | DX: N92.0 Excessive and frequent menstruation with regular cycle (principal); N76.1 Subacute and chronic vaginitis | CPT/HCPCS: 58100; 88305 ==

== ENCOUNTER → 2021-11-18 11:41 | Outpatient (BNVA) | payer OTHER, SELFPAY | PROVIDERS: Visit Provider Advanced Practice Midwife ==

== ENCOUNTER → 2022-01-03 08:38 | Outpatient (BNVA) | payer OTHER, SELFPAY | PROVIDERS: Visit Provider Obstetrics & Gynecology | DX: Z13.89 Encounter for screening for other disorder (principal) ==

== ENCOUNTER 2022-01-06 07:36 | Day surgery (SDC) | payer OTHER, SELFPAY ==
--- NOTE | 2022-01-05 09:08 | P.CONAN_ITS ---
Documented by User: Shruthi Huddleston NP 01/05/22 09:08 HPI - Anesthesia Eval Consult details Narrative: 51yo F for D&C Hysteroscopy, possible polypectomy/myomectomy s/p D&C 10/2020 with MAC [facility] Active Problems Active Problems: All Active Problems (Updated 01/03/22 @ 08:48 by John Luther MD) Abnormal uterine bleeding (Acute) Chronic nausea (Acute) Vitamin D deficiency (Acute) Postprandial abdominal bloating (Acute) Family history of ovarian cancer (Acute) Pelvic pain (Acute) Annual physical exam (Acute) Mass of left axilla (Acute) GERD (gastroesophageal reflux disease) (Acute) Chronic idiopathic constipation (Acute) Past Medical History Medical History Family history of colon cancer GERD (gastroesophageal reflux disease) Family History Family History Father Patient's father is Lung cancer Diabetes Myocardial infarction Mother Hypertension Intestinal cancer Bladder cancer Cholangiocarcinoma Sister Lymphoma Patient's sister is Family history of problems with anesthesia: No Surgical History Surgical History History of esophagogastroduodenoscopy (EGD) History of eyelid surgery History of hysteroscopy History of loop electrical excision procedure (LEEP) Hx of breast biopsy Hx of colonoscopy Hx of hemorrhoidectomy S/P bilateral breast lumpectomy History of Problems with Anesthesia: No Social History Social History Household Members: None Housing: Apartment Alcohol intake: current Alcohol intake frequency: holidays/special occasions only Alcohol type: wine Patient Tobacco Use Status: Never used Tobacco e-Cigarette/Vaping Use: Never Used Second Hand Smoke Exposure: No Use of substances other than those prescribed or required for medical reasons: No Are you DNR?: No Advance Directives: No Advance Directives Information Provided: Yes service: No Current occupational status: employed 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 Allergies Allergy/AdvReac Type Severity Reaction Status Date / Time No Known Allergies Allergy Verified 11/18/21 11:42 Exam Exam Date and Time: January 05, 2022 0908 Assessment and Plan Assessment Anesthesia Assessment: Chart Reviewed Final Anesthetic Review Family History of Problems with Anesthesia: No History of Problems with Anesthesia: No Documented by User: Jonathon Baez MD 01/06/22 11:05 PMF Past Medical History Medical History Family history of colon cancer GERD (gastroesophageal reflux disease) Family History Family History Father Patient's father is Lung cancer Diabetes Myocardial infarction Mother Hypertension Intestinal cancer Bladder cancer Cholangiocarcinoma Sister Lymphoma Patient's sister is Surgical History Surgical History History of esophagogastroduodenoscopy (EGD) History of eyelid surgery History of hysteroscopy History of loop electrical excision procedure (LEEP) Hx of breast biopsy Hx of colonoscopy Hx of hemorrhoidectomy S/P bilateral breast lumpectomy Social History Social History Household Members: None Housing: Apartment Alcohol intake: current Alcohol intake frequency: holidays/special occasions only Alcohol type: wine Patient Tobacco Use Status: Never used Tobacco e-Cigarette/Vaping Use: Never Used Second Hand Smoke Exposure: No Use of substances other than those prescribed or required for medical reasons: No Are you DNR?: No Advance Directives: No Advance Directives Information Provided: Yes service: No Current occupational status: employed 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
[2022-01-06] VITALS (8 sets, daily range): BP systolic 98–113; BP diastolic 58–72; PULSE 59–89; RESP 12–16; TEMP 36.2–36.6; O2SAT 96–100; BMI 24.5
[2022-01-06 09:59] LABS: UPreg QC Valid YES; Urine Pregnancy NEGATIVE (NEGATIVE)
--- NOTE | 2022-01-06 10:49 | MHC.SHP ---
Pre-Procedural Eval Section A Date of Service: 01/06/22 The patient is an INPATIENT: No Changes since office visit: No Cold of Flu in the past 2 weeks, No New Medical Problems, No Changes in Medication and No Patient answered all questions The History & Physical has been completed within 30 days and I have reviewed it.: Yes Section B Chief Complaint: bleeding Allergies: Allergies Allergy/AdvReac Type Severity Reaction Status Date / Time No Known Allergies Allergy Verified 11/18/21 11:42 Plan Diagnosis/Plan: Unchanged I have reviewed the history and physical and performed a pertinent physical examination on my patient. No changes have occurred unless specified.
--- NOTE | 2022-01-06 13:10 | P.BOP_ITS ---
Brief Operative Note Date of Service: 01/06/22 Pre-op diagnosis: Abnormal uterine bleeding fragments of endometrial polyp on endometrial biopsy pathology Post-op diagnosis: same (Normal endometrial cavity) Procedure: Hysteroscopy D&C Surgeon: John Luther MD Anesthesia: MAC Was an Device Processing Engineer used for this Procedure?: No Estimated blood loss (mL): 0 Pathology: other (Endometrial Scrapping. ) Condition: stable Disposition: PACU
--- NOTE | 2022-01-06 13:11 | P.OP_ITS ---
Operative Note Operative Note Date of Service: 01/06/22 Narrative: Preop Diagnosis: Abnormal uterine bleeding, fragments of Endometrial polyp on endometrial biopsy pathology Operation: Diagnostic Hysteroscopy, Dilataion & Curettage Post Op Diagnosis: Normal endometrial cavity QBL: Minimal Anesthesia: MAC Surgeon: John Luther MD Tool Lathe Operator: None Complication: None Pathology: Endometrial Scrapings Procedure: The patient was put in the dorsal lithotomy position, scrubbed, and draped in the usual manner. A sterile speculum was inserted in the patient's vagina. The anterior lip of the cervix was grasped with a single tooth tenaculum. The cervix was dilated up to 5 mm, then the scope was inserted in the patient's uterus. Inspection revealed normal endometrial cavity. The diagnostic scope was used; sharp curettings was carried on with moderate amount of tissues retrieved. At the end of the procedure, all instruments were taken out of the patient uterine and vaginal cavity. The single tooth tenaculum was removed and homeostasis was assured using pressure,. The patient tolerated the procedure well and was transferred to the PACU in a stable condition.
[2022-01-06] MEDS: ondansetron HCL 4 MG/2 ML VIAL IVPUSH (14:01)
== END 2022-01-06 14:30 | disposition home or self-care (01) ==
PROVIDERS: Nurse Practitioner; Visit Provider Obstetrics & Gynecology
PROC: 0UDB8ZZ Extraction of Endometrium, Via Natural or Artificial Opening Endoscopic (ICD-10-PCS; CPT 58558; principal; 2022-01-06 12:10)
DX: N93.9 Abnormal uterine and vaginal bleeding, unspecified (principal); Z90.710 Acquired absence of both cervix and uterus; Z80.0 Family history of malignant neoplasm of digestive organs; K21.9 Gastro-esophageal reflux disease without esophagitis; Z98.890 Other specified postprocedural states
CPT/HCPCS: 58558; 81025; 88305; J1100; J2250; J2405; J3010

== ENCOUNTER 2022-04-03 13:11 | Outpatient (REF) | payer OTHER, SELFPAY ==
[2022-04-03 13:25] LABS: MANUAL DIFF FLAG NO
[2022-04-03 13:46] LABS: Basophils Absolute Auto 0.1 X10*3/uL (0.0-0.2); Basophils Percent Auto 0.6 % (0-2); Eosinophils Absolute Auto 0.4 X10*3/uL (0.0-0.4); Eosinophils Percent Auto 3.2 % (0-4); Hematocrit 40.9 % (37.0-47.0); Hemoglobin 13.5 g/dl (12.0-16.0); Imm Gran Abs Auto 0.05 X10*3/uL (0.00-0.03); Imm Gran Pct Auto 0.4 % (0.0-0.4); Lymphocytes Absolute Auto 2.3 X10*3/uL (1.2-4.9); Lymphocytes Percent Auto 17.4 % (20-40); Mean Corpuscular Hemoglobin 28.7 pg (27.0-33.0); Mean Corpuscular Volume 86.8 fL (80.0-98.0); Mean Platelet Volume 10.7 fL (9.4-12.3); Monocytes Absolute Auto 0.6 X10*3/uL (0.1-1.2); Monocytes Percent Auto 4.5 % (2-11); Neutrophils Absolute Auto 9.8 x10*3/uL (2.0-8.3); Neutrophils Percent Auto 73.9 % (45-73); Platelet Count 264 X10*3/uL (160-400); Red Blood Count 4.71 X10*6/uL (4.20-5.50); White Blood Count 13.2 X10*3/uL (4.8-10.8)
[2022-04-03 14:20] LABS: Alanine Aminotransferase 7 U/L (0-31); Albumin Level 4.4 g/dL (3.5-5.0); Alkaline Phosphatase 60 U/L (39-117); Anion Gap 14 (12-20); Aspartate Amino Transferase 15 U/L (5-31); Bilirubin Total 0.6 mg/dL (0.0-1.0); Blood Urea Nitrogen 10 mg/dL (9-16); C Reactive Protein 0.05 mg/dL (< or = 0.50); Calcium 9.6 mg/dL (8.4-10.2); Carbon Dioxide 22 mmol/L (22-29); Chloride 106 mmol/L (96-108); Estimated Glomerular Filt Rate > 60; Glucose Random 78 mg/dL (60-115); Iron 122 mcg/dL (30-160); Percent Iron Saturation 32 % (15-50); Potassium 4.8 mmol/L (3.3-5.1); Sodium 137 mmol/L (135-145); Total Iron Binding Capacity 383 mcg/dL (228-428); Total Protein 7.7 g/dL (6.5-8.0); Unsaturated Iron Binding 261 ug/dL
[2022-04-03 14:25] LABS: Appearance Urine CLEAR; Color Urine YELLOW; Glucose Urine UA NEG (NEG); Leukocyte Esterase Urine 3+ (NEG); Nitrite Urine NEG (NEG); PH 5.5 (5.0-8.0); Specific Gravity - Urine 1.025 (1.005-1.025); UACC Culture Trigger YES; Urine Blood TRACE (NEG); Urine Ketones 15 MG/DL (NEG); Urine Protein NEG (NEG-TRACE)
[2022-04-03 14:27] LABS: Erythrocyte Sedimentation Rate 9 MM/HR (0-20)
[2022-04-03 14:43] LABS: Bacteria Urine 1+ /LPF; Squamous Epithelial Cell Urine 4+ /LPF
[2022-04-03 14:44] LABS: Ferritin 42 ng/mL (10-250); TSH reflex Free T4 0.57 uIU/mL (0.32-4.0); Vitamin D 25-OH Total 19.6 ng/mL (>30)
[2022-04-04 19:17] LABS: Transglutaminase Ab IgG <1.0 U/mL; Transglutaminase IgA <1.0 U/mL
== END 2022-04-03 13:12 | disposition home or self-care (01) ==
LOC: HO.LAB 13:11
PROVIDERS: PCP Internal Medicine; Visit Provider Internal Medicine Gastroenterology
DX: R10.33 Periumbilical pain (principal); R11.0 Nausea; G89.29 Other chronic pain; K75.81 Nonalcoholic steatohepatitis (NASH); K59.01 Slow transit constipation
CPT/HCPCS: 36415; 80053; 81001; 82306; 82728; 83540; 84443; 85025; 85652; 86140; 86364; 87086

== ENCOUNTER 2022-07-13 08:00 | Day surgery (SDC) | payer OTHER, SELFPAY ==
--- NOTE | 2022-07-12 10:11 | HO.ANESPROP2 ---
Documented by User: Shruthi Huddleston NP 07/12/22 10:12 HPI - Anesthesia Eval Consult details Narrative: 52yo F for Upper Endoscopy and Colonoscopy PMF Active Problems Active Problems: All Active Problems (Updated 04/03/22 @ 12:49 by Claudette Daugherty MD) Constipation by delayed colonic transit (Acute) Abnormal uterine bleeding (Acute) Chronic nausea (Acute) Vitamin D deficiency (Acute) Postprandial abdominal bloating (Acute) Family history of ovarian cancer (Acute) Pelvic pain (Acute) Annual physical exam (Acute) Mass of left axilla (Acute) GERD (gastroesophageal reflux disease) (Acute) Chronic idiopathic constipation (Acute) Past Medical History Medical History Family history of colon cancer GERD (gastroesophageal reflux disease) Family History Family History Father Patient's father is Lung cancer Diabetes Myocardial infarction Mother Hypertension Intestinal cancer Bladder cancer Cholangiocarcinoma Sister Lymphoma Patient's sister is Brother Brain aneurysm Family history of problems with anesthesia: No Surgical History Surgical History History of esophagogastroduodenoscopy (EGD) History of eyelid surgery History of hysteroscopy History of loop electrical excision procedure (LEEP) Hx of breast biopsy Hx of colonoscopy Hx of hemorrhoidectomy S/P bilateral breast lumpectomy History of Problems with Anesthesia: No Social History Social History Household Members: None Housing: Apartment Alcohol intake: current Alcohol intake frequency: holidays/special occasions only Alcohol type: wine Patient Tobacco Use Status: Never used Tobacco e-Cigarette/Vaping Use: Never Used Second Hand Smoke Exposure: No Advance Directives: No Advance Directives Information Provided: Yes service: No Current occupational status: employed 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 Allergies Allergy/AdvReac Type Severity Reaction Status Date / Time No Known Allergies Allergy Verified 07/13/22 09:28 Home Medications Medication Instructions Recorded Confirmed Last Taken Type No Known Home Meds 07/13/22 07/13/22 Unknown History Exam Exam Date and Time: July 12, 2022 1011 Pertinent Lab Results Pertinent Lab Results: Laboratory Tests 04/03/22 04/03/22 13:24 13:24 WBC 13.2 H Hgb 13.5 Hct 40.9 Plt Count 264 Sodium 137 Potassium 4.8 Chloride 106 Carbon Dioxide 22 BUN 10 Creatinine 0.79 Assessment and Plan Assessment Anesthesia Assessment: Chart Reviewed Final Anesthetic Review Family History of Problems with Anesthesia: No History of Problems with Anesthesia: No Documented by User: Yulisa Warner MD 07/13/22 09:33 PMFSH Past Medical History Medical History Family history of colon cancer GERD (gastroesophageal reflux disease) Family History Family History Father Patient's father is Lung cancer Diabetes Myocardial infarction Mother Hypertension Intestinal cancer Bladder cancer Cholangiocarcinoma Sister Lymphoma Patient's sister is Brother Brain aneurysm Surgical History Surgical History History of esophagogastroduodenoscopy (EGD) History of eyelid surgery History of hysteroscopy History of loop electrical excision procedure (LEEP) Hx of breast biopsy Hx of colonoscopy Hx of hemorrhoidectomy S/P bilateral breast lumpectomy Social History Social History Household Members: None Housing: Apartment Alcohol intake: current Alcohol intake frequency: holidays/special occasions only Alcohol type: wine Patient Tobacco Use Status: Never used Tobacco e-Cigarette/Vaping Use: Never Used Second Hand Smoke Exposure: No Advance Directives: No Advance Directives Information Provided: Yes service: No Current occupational status: employed 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 Allergies Allergy/AdvReac Type Severity Reaction Status Date / Time No Known Allergies Allergy Verified 07/13/22 09:28 Home Medications Medication Instructions Recorded Confirmed Last Taken Type No Known Home Meds 07/13/22 07/13/22 Unknown History Exam Airway Mallampati Class: II TM Dist: >3cm Neck ROM: Full Loose/Missing/Broken Teeth: No Heart: RRR Lungs: CTA Assessment and Plan Assessment Anesthesia Assessment: Anesthesia Plan Discussed Final Anesthetic Review NPO: Yes ASA Class: II Final Preanesthetic Review: Meds/Allgs Chart Reviewed, Consent Obtained/Reviewed and Anes Risks/Benef Reviewed Patient Risk: Low Procedure Risk: Intermediate Anesthetic Plan Anesthetic Plan: MAC: Disposition: Standard PACU
--- NOTE | 2022-07-13 09:24 | MHC.SHP ---
Pre-Procedural Eval Section A Date of Service: 07/13/22 Section B Chief Complaint: Nausea,Slow transit constipation Relevant Family History (Specify if Yes): Yes Relevant Social History: None Present Medications: see Short Stay Collaborative assessment Medical History: Significant History (Family history of colon cancer GERD (gastroesophageal reflux disease)) History of Previous Operations: Relevant previous surgery/procedure and date(s) (History of esophagogastroduodenoscopy (EGD) History of eyelid surgery History of hysteroscopy History of loop electrical excision procedure (LEEP) Hx of breast biopsy Hx of colonoscopy Hx of hemorrhoidectomy S/P bilateral breast lumpectomy) Allergies: Allergies Allergy/AdvReac Type Severity Reaction Status Date / Time No Known Allergies Allergy Verified 04/03/22 11:40 Review of Systems Sugical H&P ROS: Negative: Constitution, Cardiovascular, Respiratory, Neurological, Psychiatric, Hem-Onc, Allergic/Immunologic, Gastrointestinal, Genitourinary, Musculoskeletal, Integumentary, Endocrine and Eyes/Ears/Nose/Throat Exam Surgical H&P Exam: Normal: HEENT, Normal: Heart, Normal: Lungs, Normal: Extremities, Normal: Abdomen, Normal: Skin and Normal: Neurological Plan Diagnosis/Plan: Unchanged I have reviewed the history and physical and performed a pertinent physical examination on my patient. No changes have occurred unless specified.
[2022-07-13 09:31] VITALS: BP 95/69; PULSE 90; RESP 16; TEMP 36.9; O2SAT 99; BMI 24.5
[2022-07-13] MEDS: Lactated Ringers 1,000 ML 100 ML IVCONT (09:35)
--- NOTE | 2022-07-13 10:15 | P.OP_ITS ---
Operative Note Operative Note Date of Service: 07/13/22 Narrative: Operative Information Procedure Description: EGD, Colonoscopy Indication: nausea, screening due to FH of CRC Anesthesia: MAC FLEXIBLE TRANSORAL UPPER GASTROINTESTINAL ENDOSCOPY AND COLONOSCOPY PROCEDURE NOTE UPPER ENDOSCOPY Consent: Indications for the procedure and potential complications of bleeding, perforation, reaction to medications and missed diagnosis were discussed with the patient and informed consent was obtained. Instrument: Olympus GIF H 190 J mid size upper endoscope Monitoring: Vital signs and clinical assessment, continuous EKG monitoring, Pulse oximetry, Carbon Dioxide monitoring and blood pressure monitoring were done throughout the procedure. Procedure: The patient was placed in the left lateral decubitis position and pre-procedure medications were administered and a bite block was placed. The endoscope was inserted into the mouth and advanced under direct vision to the third part of duodenum. A careful inspection was made as the upper endoscope was withdrawn including a retroflexed examination of the proximal stomach; Findings and interventions are described below. Findings: Larynx:normal Esophagus: GE junction at 35 cm, diaphragm hiatus at 35 cm, mild esophagitis noted with non obstructive schatzki ring, bx taken from GEJ and distal esophagus Stomach: patchy gastritis with erosions at antrum. Biopsies were obtained. Grade 2 flap valve on retroflexed examination of the cardia. Duodenum: bulbar duodenitis noted, bx taken Intervention: Biopsies as noted above COLONOSCOPY Instrument: Olympus variable stiffness pediatric scope 190L Colonoscopy Monitoring: Vital signs and clinical assessment, continuous EKG monitoring, Pulse oximetry, Carbon Dioxide monitoring and blood pressure monitoring were done throughout the procedure. Colon withdrawal time was 12 minutes. Procedure: The patient was placed in the left lateral decubitis position and pre-procedure medications were administered. After a digital rectal examination of the ano-rectum, the video colonoscope was inserted into the rectum and advanced through the colon to the cecum/TI. The colonoscope was slowly withdrawn in a retrograde panoramic fashion and the colon mucosa was carefully examined including a retroflexed view of the rectum. Findings and interventions are described below. Procedure Difficulty: easy Findings: Tortuous colon noted Terminal Ileum-normal Cecum:normal Ascending Colon: normal Transverse Colon -normal Descending Colon:normal Sigmoid Colon: normal Rectum: Retroflexion with small internal hemorrhoids, grade I, 6-7 mm sessile polyp removed with cold snare Anorectum - normal Colon preparation: [place] Bowel Preparation Scale Right colon; 1-2 Transverse colon: 2 Left colon; 2 (0 = Unprepared colon segment with mucosa not seen due to solid stool that cannot be cleared. 1 = Portion of mucosa of the colon segment seen, but other areas of the colon se gment not well seen due to staining, residual stool and/or opaque liquid. 2 = Minor amount of residual staining, small fragments of stool and/or opaque liquid, but mucosa of colon segment seen well. 3 = Entire mucosa of colon segment seen well with no residual staining, small fragments of stool or opaque liquid) Impression and Post Procedure Diagnosis: Endoscopy Findings: duodenitis erosive gastritis esophagitis Colonoscopy Findings: polyp internal hemorrhoids Plan: Await Pathology results Repeat Colonoscopy in 3-4 years due to fair prep in right colon or earlier if clinically indicated High fiber diet leaflet avoid straining at stool, epsom salts and sitz bath, anusol supps or cream consider trial of PPI, if H pylori pos then treat Above findings were reviewed with the patient and relevant handouts were provided if indicated.
[2022-07-13 10:20] VITALS: BP 94/60; PULSE 86; RESP 20; TEMP 36.6; O2SAT 100
[2022-07-13 10:35] VITALS: BP 95/59; PULSE 71; RESP 16; O2SAT 99
[2022-07-13 10:50] VITALS: BP 99/68; PULSE 77; RESP 16; TEMP 36.4; O2SAT 99
== END 2022-07-13 11:30 | disposition home or self-care (01) ==
PROVIDERS: PCP Internal Medicine; Visit Provider Internal Medicine Gastroenterology
PROC: (CPT 45385; principal; 2022-07-13 10:10)
DX: Z12.11 Encounter for screening for malignant neoplasm of colon (principal); K62.1 Rectal polyp; Z80.0 Family history of malignant neoplasm of digestive organs; K64.0 First degree hemorrhoids; K59.01 Slow transit constipation; K21.9 Gastro-esophageal reflux disease without esophagitis; K29.50 Unspecified chronic gastritis without bleeding; K22.2 Esophageal obstruction; K29.80 Duodenitis without bleeding; K20.80 Other esophagitis without bleeding; K44.9 Diaphragmatic hernia without obstruction or gangrene; Z98.890 Other specified postprocedural states
CPT/HCPCS: 45385; 43239; 88305; 88342

== ENCOUNTER 2022-10-05 08:42 | Outpatient (REF) | payer OTHER, SELFPAY ==
[2022-10-09 20:23] LABS: HPV mRNA E6/E7 rflx Not Detected (Not Detected)
== END 2022-10-05 08:43 | disposition home or self-care (01) ==
LOC: HO.LNP 08:42
PROVIDERS: PCP Internal Medicine; Visit Provider Advanced Practice Midwife
DX: Z01.419 Encounter for gynecological examination (general) (routine) without abnormal findings (principal); Z11.51 Encounter for screening for human papillomavirus (HPV)
CPT/HCPCS: 87624; 88142

== ENCOUNTER 2022-10-05 09:26 | Outpatient (REF) | payer OTHER, SELFPAY ==
[2022-10-05 10:43] LABS: Hematocrit 40.6 % (37.0-47.0); Hemoglobin 13.1 g/dl (12.0-16.0); Mean Corpuscular HGB Conc 32.3 g/dl (31.0-35.0); Mean Corpuscular Volume 86.8 fL (80.0-98.0); Mean Platelet Volume 11.1 fL (9.4-12.3); Platelet Count 283 X10*3/uL (160-400); Red Blood Count 4.68 X10*6/uL (4.20-5.50); Red Cell Distribution Width 12.7 % (11.0-16.0); White Blood Count 5.9 X10*3/uL (4.8-10.8)
[2022-10-05 11:34] LABS: HBc Num1 0.07 S/CO (0.00-0.79); HIV AB/AG Nonreactive (Nonreactive); HIV Num 1 0.06 S/CO (0.00-0.99); Hepatitis B Core Antibody Nonreactive (Nonreactive); ~HepC Num1 0.08 S/CO (0.00-0.79); ~Hepatitis C Antibody Nonreactive (Nonreactive)
[2022-10-05 11:36] LABS: Thyroid Stimulating Hormone 0.55 uIU/mL (0.32-4.0)
[2022-10-05 11:51] LABS: Syphilis Screen Nonreactive (Nonreactive)
[2022-10-05 12:18] LABS: CT PCR NOT DETECTED (Not Detect.); NG PCR NOT DETECTED (Not Detect.)
[2022-10-06 12:17] LABS: BV Int Neg Control Negative (Negative); BV Int Pos Control Positive (Positive)
== END 2022-10-05 09:27 | disposition home or self-care (01) ==
LOC: HO.LAB 09:26
PROVIDERS: PCP Internal Medicine; Visit Provider Advanced Practice Midwife
DX: Z11.4 Encounter for screening for human immunodeficiency virus [HIV] (principal); Z11.3 Encounter for screening for infections with a predominantly sexual mode of transmission; R10.2 Pelvic and perineal pain; N93.9 Abnormal uterine and vaginal bleeding, unspecified; N92.1 Excessive and frequent menstruation with irregular cycle; Z20.2 Contact with and (suspected) exposure to infections with a predominantly sexual mode of transmission
CPT/HCPCS: 0353U; 84443; 85027; 86704; 86780; 86803; 87389; 87480; 87510; 87660

== ENCOUNTER 2022-10-14 07:48 | Outpatient (REF) | payer OTHER, SELFPAY ==
--- NOTE | ~2022-10-14 | MM_ITS ---
EXAMINATION: MM SCREENING DIGITAL BREAST TOMOSYNTHESIS, BILATERAL CLINICAL INFORMATION: Screening. Asymptomatic. The lifetime risk of breast cancer based on the Tyrer-Cuzick Model is 6.9%. COMPARISON: Mammography: September 21, 2021 and studies dating back to October 15, 2015 TECHNIQUE: Digital breast tomosynthesis is performed in both the craniocaudal and mediolateral oblique views along with computer-aided detection (CAD). Synthesized 2D images are generated from the tomosynthesis. FINDINGS: The breasts are heterogeneously dense, which may obscure small masses (ACR BI-RADS breast composition Category c). There are no significant masses, abnormal calcifications, or other abnormalities. MM/MM tomosynthesis screening BI IMPRESSION: No significant changes from prior exam. ASSESSMENT: BI-RADS 1: Negative RECOMMENDATION: Routine annual mammography screening. This patient's information was entered into a reminder system with a target due date for their next mammogram.
== END 2022-10-14 07:49 | disposition home or self-care (01) ==
LOC: HO.MAMMO 07:48
PROVIDERS: PCP Internal Medicine; Visit Provider Internal Medicine
DX: Z12.31 Encounter for screening mammogram for malignant neoplasm of breast (principal)
CPT/HCPCS: 77063; 77067

== ENCOUNTER 2022-10-24 10:40 | Outpatient (REF) | payer OTHER, SELFPAY ==
--- NOTE | ~2022-10-24 | US_ITS ---
EXAMINATION: US PELVIS CLINICAL INFORMATION: Pain COMPARISON: Previous pelvic ultrasound most recent September 2021. TECHNIQUE: Ultrasound of the pelvis is performed using both transabdominal and transvaginal transducers along with Doppler. Transvaginal imaging is performed due to inadequate visualization transabdominally. FINDINGS: The uterus is anteverted and measures 10 x 4.2 x 5.1 cm in dimension. Uterine echotexture is heterogeneous. The endometrium is difficult to define. Endometrial thickness is estimated at 0.8 cm. No focal uterine lesion is seen. There are nabothian cysts in the cervix. The right ovary measures 2.9 x 1.7 x 1.7 cm. There is a 1.5 x 1.1 x 1.1 cm hypoechoic area seen in the right ovary. This is new from September 2021 exam and questionable for a complex cyst. Left ovary is seen transabdominally only and is normal-appearing. The left ovary measures 1.9 x 0.9 x 2 cm. There is no fluid in the pelvis. US/US pelvic and transvaginal IMPRESSION: Heterogeneous uterus and ill-defined endometrium. Appearance is questionable for adenomyosis. New 1.5 x 1.1 x 1.1 cm hypoechoic area in the right ovary. This probably represents a complex cyst. Normal left ovary.
== END 2022-10-24 10:41 | disposition home or self-care (01) ==
LOC: HO.US 10:40
PROVIDERS: Visit Provider Advanced Practice Midwife
DX: R10.2 Pelvic and perineal pain (principal)
CPT/HCPCS: 76830; 76856

== ENCOUNTER 2022-11-16 09:38 | Outpatient (REF) | payer OTHER, SELFPAY ==
[2022-11-17 10:57] LABS: BV Int Neg Control Negative (Negative)
[2022-11-17 10:58] LABS: BV Int Pos Control Positive (Positive)
== END 2022-11-16 09:39 | disposition home or self-care (01) ==
LOC: HO.LAB 09:38
PROVIDERS: PCP Internal Medicine; Visit Provider Advanced Practice Midwife
DX: N89.8 Other specified noninflammatory disorders of vagina (principal); N83.299 Other ovarian cyst, unspecified side; Z32.02 Encounter for pregnancy test, result negative; Z71.2 Person consulting for explanation of examination or test findings
CPT/HCPCS: 81025; 87480; 87510; 87660

== ENCOUNTER 2022-12-28 10:15 | Outpatient (REF) | payer OTHER, SELFPAY ==
--- NOTE | ~2022-12-28 | US_ITS ---
EXAMINATION: US PELVIS CLINICAL INFORMATION: Ovarian cyst. LMP about one week ago. History of polyp removal, unspecified. COMPARISON: Pelvic ultrasound 10/24/2022. TECHNIQUE: Ultrasound of the pelvis is performed using both transabdominal and transvaginal transducers along with Doppler. Transvaginal imaging is performed due to inadequate visualization transabdominally. FINDINGS: The uterus is anteverted and anteflexed measuring 9.4 x 4.2 x 5.5 cm. Equivocal thickening and heterogeneity of the myometrium. The endometrium measures 0.9 cm in thickness without discrete focal abnormality. A previously described 1.5 cm hypoechoic area in the right ovary is not well seen in this examination. The ovaries are normal in size and morphology. The right ovary measures 1.7 x 2 x 1.9 cm (3.4 mL) and the left ovary measures 2.2 x 1.6 x 2.3 cm (4.2 mL). There is a 1.5 cm dominant follicles in the left ovary, for which no imaging follow-up is recommended. Small amount of free fluid adjacent to the uterine fundus, nonspecific. US/US pelvic and transvaginal IMPRESSION: 1. Previously described 1.5 cm hypoechoic area in the right ovary is not seen in this examination, presumably resolved. 2. Equivocal thickening and heterogeneity of the myometrium, which is nonspecific and could be seen in the setting of adenomyosis. 3. The endometrium measures 0.9 cm in thickness which is within the normal limits for a premenopausal patient. However, in a dannie/postmenopausal patient this is considered abnormal. Recommend correlation with certainty of the patient's menstrual history to determine if further evaluation is recommended. 4. Small amount of free fluid in the pelvis, nonspecific.
== END 2022-12-28 10:16 | disposition home or self-care (01) ==
LOC: HO.US 10:15
PROVIDERS: PCP Internal Medicine; Visit Provider Advanced Practice Midwife
DX: N83.299 Other ovarian cyst, unspecified side (principal)
CPT/HCPCS: 76830; 76856

== ENCOUNTER → 2023-01-11 09:35 | Outpatient (BNVA) | payer OTHER, SELFPAY | PROVIDERS: PCP Internal Medicine; Visit Provider Advanced Practice Midwife ==

== ENCOUNTER 2023-03-27 14:32 | Outpatient (AMB) | payer OTHER, SELFPAY ==
--- NOTE | 2023-03-27 14:34 | A.OFFPC_ITS ---
Vital Signs 03/27/23 14:35 Height 5 ft 1 in Weight 142 lb BMI 26.8 BP 102/66 Blood Pressure Location Lt brachial Position Sitting Pulse 69 Pulse Source Pulse Oximeter Temp Source Skin Pulse Oximetry (%) 99 Oxygen Delivery Method Room Air Intake Visit Reasons: Lightheaded/Weak Intake Note: pt states on going light headed and weakness. Work note needed. [employer] Required: No Allergies No Known Allergies Allergy (Verified 03/27/23 15:22) Medication List - Last Reconciled 03/27/23 by LUCAS Contreras No Known Home Meds Tobacco use date assessed: 03/27/23 Dental Screening Dental Screen Date: 03/27/23 HPI Lightheaded/Weak HPI Details Patient is a 52-year-old female presents today for an office visit due to headaches and dizziness for the past [address] of [address] Chen, last visit in 2020. Medical history significant for GERD, constipation chronic nausea among others. Patient reports frontal headache every other day for the past 1 year, she also reports intermittent dizziness and lightheadedness and room spinning sensation. Reports sensitivity to light with headache, reports feeling slightly better in dark room. Reports in the office today bilateral temporal area headache 8/10 scale, did not take anything for headache today, reports she does not like to take a lot of medications. Reports taking [id number] Tylenol with no much improvement intermittently. 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 Denies any other neurological symptoms. Denies shortness of breath or chest pain. She is here for an evaluation. Reports feeling weak in the morning. Reports having new glasses. [facility]LY [facility] Medical History Abnormal Pap smear of cervix Family history of colon cancer GERD (gastroesophageal reflux disease) Surgical History History of esophagogastroduodenoscopy (EGD) History of eyelid surgery History of hysteroscopy History of loop electrical excision procedure (LEEP) Hx of breast biopsy Hx of colonoscopy Hx of hemorrhoidectomy S/P bilateral breast lumpectomy Family History Father Patient's father is Lung cancer Diabetes Myocardial infarction Mother Hypertension Intestinal cancer Bladder cancer Cholangiocarcinoma Ovarian cancer Sister Lymphoma Patient's sister is Brother Brain aneurysm Social History Household Members: None Housing: Apartment Alcohol intake: current Alcohol intake frequency: holidays/special occasions only Alcohol type: wine Patient Tobacco Use Status: Never used Tobacco e-Cigarette/Vaping Use: Never Used Second Hand Smoke Exposure: No service: No Current occupational status: employed 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 Cognitive needs: No Hearing needs: No Vision needs: No Female Reproductive History Menstrual Age of Menarche: 11 Questionnaire Thrive Questionnaire Date Thrive assessed: 03/27/23 I am a: Patient What is your living situation today?: I have a steady place to live Within the past 12 months, did the food you bought not last and you didn't have the money to get more?: Never true Within the past 12 months, did you worry whether your food would run out before you got money to buy more?: Never true Currently or been in a relationship where the following occur: no concerns reported AUDIT C Alcohol Use Questionnaire (AUDIT-C) 1. How often do you have a drink containing alcohol?: Monthly or less 2. How many drinks containing alcohol do you have on a typical day when you are drinking?: 1 or 2 3. How often do you have six or more drinks on one occasion?: Never Total Score: 1 Score Reviewed/Action Taken: No DOMENICO-7 AMB Questionnaire DOMENICO-7 Date DOMENICO - 7 assessed: 08/11/21 Source: Developed by Drs. Juanito Gonsalez, Vicenta Lewis, Jose Daniel Pratt and colleagues, with an educational gray from [employer]. Review of Systems Const Reports as per HPI, Denies body aches, Denies chills, Denies fever(s), Reports headache(s) and Reports weakness (in am ) Eyes Denies change in vision ENT Denies dizziness, Denies otalgia, Reports headache(s), Denies nasal discharge, Denies sinus pain and Denies sore throat Card Denies chest pain, Denies edema, Denies lightheadedness and Denies dyspnea Resp Denies cough, Denies dyspnea and Denies wheezing GI Denies constipation, Denies diarrhea, Denies nausea and Denies vomiting Denies dysuria Musc Denies myalgias Skin/Breast Denies rash Neuro Denies dizziness, Reports headache(s) and Reports weakness (in am ) Aller/Immun Denies wheezing Physical exam (Primary Care) Vital Signs: Last Vital Signs Pulse 69 03/27/23 14:35 BP 102/66 03/27/23 14:35 Pulse Ox 99 03/27/23 14:35 Oxygen Delivery Method Room Air 03/27/23 14:35 BMI result Body Mass Index 26.8 Tobacco/Smoking Status: Tobacco use Status Tobacco use date assessed 03/27/23 03/27/23 14:36 Patient Tobacco Use Status Never used Tobacco 03/27/23 14:36 e-Cigarette/Vaping Use Never Used 03/27/23 14:36 Thrive Assessment: Date of Thrive Assessment Date Thrive assessed 03/27/23 03/27/23 14:36 Currently or been in a relationship where the following occur: no concerns reported Const General: cooperative and no acute distress Orientation/consciousness: patient oriented x3 HENMT Head: Yes normocephalic and Yes atraumatic Ears: TM's normal bilaterally Face and sinus: Yes sinuses nontender Mouth: oropharynx normal and moist mucous membranes Throat: Yes posterior oropharynx normal Eyes General: appearance normal, both eyes and all related structures Pupils: Equal, round and reactive pupils present EOM: EOMs intact bilaterally Neck Neck: Yes normal visual inspection, Yes full ROM and Yes no lymphadenopathy Thyroid: Thyroid normal Resp Effort & Inspection: normal respiratory effort and able to speak in complete sentences Auscultation: clear to auscultation bilaterally, no crackles, no rales, no rhonchi and no wheezes Cardio Rate: regular rate Rhythm: regular rhythm Heart sounds: S1 normal heart sound present, S2 normal heart sound present and no murmurs GI Palpation (GI): Soft to palpation, not firm, nontender, no guarding, not rigid and no hepatosplenomegaly Auscultation: normal bowel sounds Skin General skin exam: no rashes or lesions noted Neuro General: patient oriented x3 and CN's II-XI intact bilaterally Cranial nerves: Yes Equal, round and reactive pupils present Gait exam (Neuro): Normal gait present Motor exam (neuro): 5/5 motor strength present throughout Extrem General: Yes full ROM and No edema Assessment and Plan Assessment & Plan (1) Headache: Code(s): R51.9 - Headache, unspecified Plan: Patient reports headaches in the past although headaches have been worsening in the past year. Physical exam normal today. Will order blood work. Head/brain CT scan ordered. Encouraged patient to try [id number] Tylenol 1000 mg every 6 hours as needed alternating with ibuprofen 400 mg every 8 hours as needed. Signs and symptoms reviewed when to notify provider or go to the emergency department. Patient agreed with the plan. (2) Dizziness: Code(s): R42 - Dizziness and giddiness Plan: Possible vertigo, will do a trial of meclizine 25 mg daily p.r.n.-educated about drowsiness. PT referral. Patient reports intermittent room spinning sensation for the past 1 year. Signs and symptoms reviewed when to notify provider or go to the emergency department. Patient agreed with the plan. Orders: Orders Comprehensive [place]. Panel Fast Today R42 - Dizziness and giddiness TSH reflex Free T4 Today R42 - Dizziness and giddiness Vitamin D 25-OH Total Today R42 - Dizziness and giddiness Complete Blood Count Auto Diff Today R42 - Dizziness and giddiness CT head/brain wo IV con Today R42 - Dizziness and giddiness, R51.9 - Headache, unspecified PT Evaluation and Treatment Today R42 - Dizziness and giddiness Medications: New meclizine 25 mg PO DAILY PRN 14 tabs 0RF motion sickness R42 - Dizziness and giddiness Coding Level of Care Code Est Pt Level 3 (40818) Diagnoses Headache R51.9 Dizziness R42
[2023-03-27 14:35] VITALS: BP 102/66; PULSE 69; O2SAT 99; BMI 26.8
== END 2023-03-27 15:44 | disposition home or self-care (01) ==
PROVIDERS: PCP Internal Medicine; Visit Provider Nurse Practitioner Family
DX: R51.9 Headache, unspecified (principal); R42 Dizziness and giddiness
CPT/HCPCS: 99213

== ENCOUNTER 2023-03-31 07:48 | Outpatient (REF) | payer OTHER, SELFPAY ==
[2023-03-31 08:03] LABS: MANUAL DIFF FLAG NO
[2023-03-31 08:22] LABS: Basophils Absolute Auto 0.1 X10*3/uL (0.0-0.2); Basophils Percent Auto 1.2 % (0-2); Eosinophils Absolute Auto 0.4 X10*3/uL (0.0-0.4); Eosinophils Percent Auto 5.5 % (0-4); Hematocrit 40.1 % (37.0-47.0); Hemoglobin 12.7 g/dl (12.0-16.0); Imm Gran Abs Auto 0.02 X10*3/uL (0.00-0.03); Imm Gran Pct Auto 0.3 % (0.0-0.4); Lymphocytes Absolute Auto 1.8 X10*3/uL (1.2-4.9); Lymphocytes Percent Auto 23.8 % (20-40); Mean Corpuscular HGB Conc 31.7 g/dl (31.0-35.0); Mean Corpuscular Hemoglobin 28.2 pg (27.0-33.0); Mean Corpuscular Volume 88.9 fL (80.0-98.0); Mean Platelet Volume 10.8 fL (9.4-12.3); Monocytes Absolute Auto 0.5 X10*3/uL (0.1-1.2); Monocytes Percent Auto 6.5 % (2-11); Neutrophils Absolute Auto 4.7 x10*3/uL (2.0-8.3); Neutrophils Percent Auto 62.7 % (45-73); Platelet Count 259 X10*3/uL (160-400); Red Blood Count 4.51 X10*6/uL (4.20-5.50); Red Cell Distribution Width 13.5 % (11.0-16.0); White Blood Count 7.4 X10*3/uL (4.8-10.8)
[2023-03-31 09:08] LABS: Alanine Aminotransferase 21 U/L (0-31); Albumin Level 3.8 g/dL (3.5-5.0); Alkaline Phosphatase 70 U/L (39-117); Anion Gap 8 (12-20); Aspartate Amino Transferase 20 U/L (5-31); Bilirubin Total 0.3 mg/dL (0.0-1.0); Blood Urea Nitrogen 9 mg/dL (9-16); Calcium 9.1 mg/dL (8.4-10.2); Carbon Dioxide 25 mmol/L (22-29); Chloride 110 mmol/L (96-108); Estimated Glomerular Filt Rate > 60; Glucose Fasting 87 mg/dL (60-99); Sodium 139 mmol/L (135-145); Total Protein 6.8 g/dL (6.5-8.0)
[2023-03-31 09:11] LABS: TSH reflex Free T4 0.65 uIU/mL (0.32-4.0); Vitamin D 25-OH Total 16.2 ng/mL (>30)
== END 2023-03-31 07:49 | disposition home or self-care (01) ==
LOC: HO.LAB 07:48
PROVIDERS: PCP Internal Medicine; Visit Provider Nurse Practitioner Family
DX: R42 Dizziness and giddiness (principal); R51.9 Headache, unspecified; E55.9 Vitamin D deficiency, unspecified
CPT/HCPCS: 36415; 80053; 82306; 84443; 85025

== ENCOUNTER 2023-08-08 07:40 | Outpatient (AMB) | payer OTHER, SELFPAY ==
[2023-08-08 08:35] VITALS: BP 102/68; PULSE 70; O2SAT 98; BMI 26.1
--- NOTE | 2023-08-08 08:35 | A.OFFPC_ITS ---
Vital Signs 08/08/23 08:35 Height 5 ft 1 in Weight 138 lb BMI 26.1 BP 102/68 Blood Pressure Location Lt brachial Position Sitting Pulse 70 Pulse Source Pulse Oximeter Pulse Oximetry (%) 98 Oxygen Delivery Method Room Air Intake Visit Reasons: pe Allergies No Known Allergies Allergy (Verified 08/08/23 08:43) Medication List - Last Reconciled 08/08/23 by LUCAS Contreras cholecalciferol (vitamin D3) 50 mcg PO DAILY Tobacco use date assessed: 03/27/23 Dental Screening Dental Screen Date: 08/08/23 Did you have a dental visit in the last 12 months?: Yes Did you have a dental problem in the last 6 months where you did not have access to dental care?: No Was dental information given to patient?: Patient has dentist HPI pe HPI Details Patient is a 53-year-old female who presents today for physical exam. Patient of Dr. Chen. Medical history significant for constipation, GERD, family history of ovarian cancer-mother with history of ovarian cancer-patient requesting genetic testing-will refer, headaches-reports daily headaches frontal aspect-does not like to take medications-also has sensitivity to light and feels better in a dark room-has referral for head/brain CT scan-was not done yet-will follow-up. She will call for an eye exam. Mammogram normal 10/2022. Pap smear normal 09/2022 with [facility]. Colonoscopy 07/2022 with hyperplastic polyp and repeat in 5 years was done by Dr. Daugherty. [facility] Medical History COVID-19 virus infection Abnormal Pap smear of cervix GERD (gastroesophageal reflux disease) Family history of colon cancer Surgical History History of eyelid surgery History of hysteroscopy Hx of hemorrhoidectomy S/P bilateral breast lumpectomy History of loop electrical excision procedure (LEEP) History of esophagogastroduodenoscopy (EGD) Hx of colonoscopy Hx of breast biopsy Family History Father Patient's father is Lung cancer Diabetes Myocardial infarction Mother Hypertension Intestinal cancer Bladder cancer Cholangiocarcinoma Ovarian cancer Sister Lymphoma Patient's sister is Brother Brain aneurysm Social History Household Members: None Housing: Apartment Alcohol intake: current Alcohol intake frequency: holidays/special occasions only Alcohol type: wine Patient Tobacco Use Status: Never used Tobacco e-Cigarette/Vaping Use: Never Used Second Hand Smoke Exposure: No service: No Current occupational status: employed 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 1. Little interest or pleasure in doing things: not at all 2. Feeling down, depressed, or hopeless: not at all 3. Trouble falling or staying asleep, or sleeping too much: not at all 4. Feeling tired or having little energy: not at all 5. Poor appetite or overeating: not at all 6. Feeling bad about yourself - or that you are a failure or have let yourself or your family down: not at all 7. Trouble concentrating on things, such as reading the newspaper or watching television: not at all 8. Moving or speaking so slowly that other people could have noticed. Or the opposite - being so fidgety or restless that you have been moving around a lot more than usual: not at all 9. Thoughts that you would be better off or of hurting yourself in some way: not at all Total score: 0 Depression Screening Interpretation: Negative Depression Screening Done: Yes 88825 - PHQ-9 Billing: Yes Source: Developed by Drs. Juanito Gonsalez, Vicenta Lewis, Jose Daniel Pratt and colleagues, with an educational gray from [employer]. Thrive Questionnaire Date Thrive assessed: 03/27/23 AUDIT C Alcohol Use Questionnaire (AUDIT-C) 1. How often do you have a drink containing alcohol?: Monthly or less 2. How many drinks containing alcohol do you have on a typical day when you are drinking?: 1 or 2 3. How often do you have six or more drinks on one occasion?: Never Total Score: 1 Score Reviewed/Action Taken: No DOMENICO-7 AMB Questionnaire DOMENICO-7 Date DOMENICO - 7 assessed: 08/08/23 Feeling nervous, anxious, or on edge: 0 = Not at all Not being able to stop or control worryin = Not at all Worrying too much about different things: 0 = Not at all Trouble relaxin = Not at all Being so restless that it is hard to sit still: 0 = Not at all Becoming easily annoyed or irritable: 0 = Not at all Feeling afraid as if something awful might happen: 0 = Not at all Total DOMENICO-7 score (0-4 normal; 5-9 mild; 10-14 moderate; 15-21 severe): 0 Source: Developed by Drs. Juanito Gonsalez, Vicenta Lewis, Jose Daniel Pratt and colleagues, with an educational gray from [employer]. DOMENICO-7 Assessment Billing DOMENICO-7 Assessment Tool: DOMENICO-7 Assessment 84904 Review of Systems Const Denies body aches, Denies chills, Denies fever(s) and Reports headache(s) Eyes Denies change in vision ENT Denies dizziness, Denies otalgia, Reports headache(s), Denies nasal discharge, Denies sinus pain and Denies sore throat Card Denies chest pain, Denies edema, Denies lightheadedness and Denies dyspnea Resp Denies cough, Denies dyspnea and Denies wheezing GI Denies abdominal pain Denies dysuria Musc Denies myalgias Skin/Breast Denies rash Neuro Denies dizziness and Reports headache(s) Aller/Immun Denies wheezing Physical exam (Primary Care) Vital Signs: Last Vital Signs Pulse 70 08/08/23 08:35 BP 102/68 08/08/23 08:35 Pulse Ox 98 08/08/23 08:35 Oxygen Delivery Method Room Air 08/08/23 08:35 BMI result Body Mass Index 26.1 Tobacco/Smoking Status: Tobacco use Status Tobacco use date assessed 03/27/23 08/08/23 08:40 Patient Tobacco Use Status Never used Tobacco 08/08/23 08:40 e-Cigarette/Vaping Use Never Used 08/08/23 08:40 PHQ-9: PHQ-9 Score PHQ-9: Total score 0 08/08/23 08:45 Depression Screening Interpretation: Negative Thrive Assessment: Date of Thrive Assessment Date Thrive assessed 03/27/23 08/08/23 08:40 Const General: cooperative and no acute distress Orientation/consciousness: patient oriented x3 HENMT Head: Yes normocephalic and Yes atraumatic Ears: TM's normal bilaterally Face and sinus: Yes sinuses nontender Mouth: oropharynx normal and moist mucous membranes Throat: Yes posterior oropharynx normal Eyes General: appearance normal, both eyes and all related structures Pupils: Equal, round and reactive pupils present EOM: EOMs intact bilaterally Neck Neck: Yes normal visual inspection, Yes full ROM and Yes no lymphadenopathy Thyroid: Thyroid normal Resp Effort & Inspection: normal respiratory effort and able to speak in complete sentences Auscultation: clear to auscultation bilaterally, no crackles, no rales, no rhonchi and no wheezes Cardio Rate: regular rate Rhythm: regular rhythm Heart sounds: S1 normal heart sound present, S2 normal heart sound present and no murmurs GI Palpation (GI): Soft to palpation, not firm, nontender, no guarding, not rigid and no hepatosplenomegaly Auscultation: normal bowel sounds General: No CVA tenderness Back/Spine/Pelvis Back: No CVA tenderness Skin General skin exam: no rashes or lesions noted Neuro General: patient oriented x3 Cranial nerves: Yes Equal, round and reactive pupils present Gait exam (Neuro): Normal gait present Extrem General: Yes full ROM and No edema Assessment and Plan Assessment & Plan (1) Family history of ovarian cancer: Code(s): Z80.41 - Family history of malignant neoplasm of ovary Plan: Referral for genetic testing (2) Headache: Code(s): R51.9 - Headache, unspecified Plan: Will follow-up on head/brain CT scan - did not have this done yet Does not like to take medications Declined trial of sumatriptan (3) Annual physical exam: Code(s): Z00.00 - Encounter for general adult medical examination without abnormal findings Plan: Repeat in 1 year Orders: Orders Lipid Panel Today Z00.00 - Encounter for general adult medical examination without abnormal findings Referrals General Surgery Referral Z80.41 - Family history of malignant neoplasm of ovary Medications: Refilled cholecalciferol (vitamin D3) 50 mcg PO DAILY 90 tabs 0RF R79.89 - Other specified abnormal findings of blood chemistry Coding Level of Care Code Est Pt Prev Care 40-64y(82850) Diagnoses Family history of ovarian cancer Z80.41 Headache R51.9 Annual physical exam Z00.00 Additional Codes DOMENICO-7 Assessment Billing - DOMENICO-7 Assessment Tool: DOMENICO-7 Assessment [id number] ([id number])
== END 2023-08-08 09:01 | disposition home or self-care (01) ==
PROVIDERS: PCP Internal Medicine; Visit Provider Nurse Practitioner Family
DX: Z80.41 Family history of malignant neoplasm of ovary (principal); R51.9 Headache, unspecified; Z00.00 Encounter for general adult medical examination without abnormal findings
CPT/HCPCS: 99396

== ENCOUNTER 2023-08-08 09:06 | Outpatient (REF) | payer OTHER, SELFPAY | END 2023-08-08 09:07 | disposition home or self-care (01) | LOC: HO.LAB 09:06 | PROVIDERS: PCP Nurse Practitioner Family; Visit Provider Nurse Practitioner Family | DX: Z13.89 Encounter for screening for other disorder (principal) ==

== ENCOUNTER 2023-08-22 08:55 | Outpatient (REF) | payer OTHER, SELFPAY ==
[2023-08-22 11:03] LABS: Cholesterol 147 mg/dL (<200); HDL Cholesterol 59 mg/dL (>40); LDL Cholesterol Calculated 69 mg/dL (<100); Triglycerides 97 mg/dL (<150)
[2023-08-22 11:11] LABS: Vitamin D 25-OH Total 11.1 ng/mL (>30)
== END 2023-08-22 08:56 | disposition home or self-care (01) ==
LOC: HO.LAB 08:55
PROVIDERS: PCP Internal Medicine; Visit Provider Nurse Practitioner Family
DX: Z00.00 Encounter for general adult medical examination without abnormal findings (principal); E55.9 Vitamin D deficiency, unspecified
CPT/HCPCS: 36415; 80061; 82306

== ENCOUNTER 2023-10-27 07:28 | Outpatient (REF) | payer OTHER, SELFPAY | END 2023-10-27 07:29 | disposition home or self-care (01) | LOC: HO.MAMMO 07:28 | PROVIDERS: PCP Internal Medicine; Visit Provider Internal Medicine | DX: Z12.31 Encounter for screening mammogram for malignant neoplasm of breast (principal) | CPT/HCPCS: 77063; 77067 ==

== ENCOUNTER → 2023-10-27 08:00 | Outpatient (BNV) | payer OTHER, SELFPAY | PROVIDERS: PCP Internal Medicine; Visit Provider Radiology Diagnostic Radiology | DX: Z12.31 Encounter for screening mammogram for malignant neoplasm of breast (principal) | CPT/HCPCS: 77063; 77067 ==

== ENCOUNTER 2023-11-08 10:00 | Outpatient (AMB) | payer OTHER, SELFPAY ==
--- NOTE | 2023-11-08 11:05 | AM.OFFWIN_ITS ---
Intake Vital Signs 11/08/23 11:06 Weight 142 lb BP 80/70 L Blood Pressure Location Lt brachial Position Sitting Pulse 62 Pulse Source Pulse Oximeter Pulse Oximetry (%) 99 Oxygen Delivery Method Room Air Intake Visit Reasons: EP Headache Intake Note: Patient here for headaches that have been very bad and constantly and almost passed out at work. Patient Tobacco Use Status: Never used Tobacco Allergies No Known Allergies Allergy (Verified 11/08/23 11:07) Do you need a note to return to daycare/school/sports/work: Yes HPI HPI Comments History of Present Illness Details 53 y/o female patient who presents to [facility] in clinic with c/o Headaches. Pt suffers from chronic headaches x 3 years. Reports light and sound sensitivity. Reports dizzines, nausea but no vomiting. PCP ordered CT scan head, that Pt needs to obtain. PFSH Medical History COVID-19 virus infection Abnormal Pap smear of cervix GERD (gastroesophageal reflux disease) Family history of colon cancer Surgical History History of eyelid surgery History of hysteroscopy Hx of hemorrhoidectomy S/P bilateral breast lumpectomy History of loop electrical excision procedure (LEEP) History of esophagogastroduodenoscopy (EGD) Hx of colonoscopy Hx of breast biopsy Family History Father Patient's father is Lung cancer Diabetes Myocardial infarction Mother Hypertension Intestinal cancer Bladder cancer Cholangiocarcinoma Ovarian cancer Sister Lymphoma Patient's sister is Brother Brain aneurysm Social History Household Members: None Housing: Apartment Alcohol intake: current Alcohol intake frequency: holidays/special occasions only Alcohol type: wine Patient Tobacco Use Status: Never used Tobacco e-Cigarette/Vaping Use: Never Used Second Hand Smoke Exposure: No service: No Current occupational status: employed 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 Cognitive needs: No Hearing needs: No Vision needs: No Female Reproductive History Menstrual Age of Menarche: 11 Review of Systems Const All systems reviewed & are unremarkable except as noted in HPI and below Physical Exam Vital Signs: Last Vital Signs Pulse 62 11/08/23 11:06 BP 80/70 L 11/08/23 11:06 Pulse Ox 99 11/08/23 11:06 Oxygen Delivery Method Room Air 11/08/23 11:06 Const General: comfortable and no acute distress Orientation/consciousness: patient oriented x3 Eyes Pupils: Equal, round and reactive pupils present EOM: EOMs intact bilaterally Neuro General: patient oriented x3 and gait normal Cranial nerves: Yes Equal, round and reactive pupils present Assessment & Plan Assessment & Plan (1) Headache: Code(s): R51.9 - Headache, unspecified Qualifiers: Headache chronicity pattern: chronic headache Headache type: tension- type Intractability: intractable Qualified Code(s): G44.221 - Chronic tension- type headache, intractable Plan: - NSAIDs - Rest in dark room/quite - No brain stimulation. Plan - F/U with PCP. Medications: New indomethacin administer with food or milk 50 mg PO BID 20 caps 0RF R51.9 - Headache, unspecified Coding Level of Care Code Est Pt Level 3 (36936) Diagnoses Chronic tension-type headache, intractable G44.221 Headache chronicity pattern: chronic headache Headache type: tension-type Intractability: intractable Time Spent (min) 15
[2023-11-08 11:06] VITALS: BP 80/70; PULSE 62; O2SAT 99
== END 2023-11-08 12:04 | disposition home or self-care (01) ==
PROVIDERS: PCP Internal Medicine; Visit Provider Nurse Practitioner Family
DX: G44.221 Chronic tension-type headache, intractable (principal)
CPT/HCPCS: 99213

== ENCOUNTER 2024-06-04 09:01 | Outpatient (AMB) | payer OTHER, SELFPAY ==
--- NOTE | 2024-06-04 09:04 | A.OFFVIS_ITS ---
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 She is doing well with no concerns. Attempting to eat a healthy diet with calcium and vitamin D and stays active with exercise. Currently not sexually active. Admits to vaginal disharge and odor, prone to BV in the past. Using Uro probiotic. STI testing offered; she accepts. Last pap smear; 2021. Last mammogram; 2023. Colonoscopy is UTD. [facility] Medical History COVID-19 virus infection Abnormal Pap smear of cervix GERD (gastroesophageal reflux disease) Family history of colon cancer Surgical History History of eyelid surgery History of hysteroscopy Hx of hemorrhoidectomy S/P bilateral breast lumpectomy History of loop electrical excision procedure (LEEP) History of esophagogastroduodenoscopy (EGD) Hx of colonoscopy Hx of breast biopsy Family History Father Patient's father is Lung cancer Diabetes Myocardial infarction Mother Hypertension Intestinal cancer Bladder cancer Cholangiocarcinoma Ovarian cancer Colon cancer Sister Lymphoma Patient's sister is Brother Brain aneurysm Social History Household Members: None Housing: Apartment Alcohol intake: current Alcohol intake frequency: holidays/special occasions only Alcohol type: wine Patient Tobacco Use Status: Never used Tobacco e-Cigarette/Vaping Use: Never Used Second Hand Smoke Exposure: No service: No Current occupational status: employed 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 Cognitive needs: No Hearing needs: No Vision needs: No Female Reproductive History Menstrual Age of Menarche: 11 Duration of menses: 6-7 days Date of last menstrual period: 05/11/24 Total pregnancies: 1 Full term: 1 Number of Living Children: 1 Date of last pap smear: 10/05/22 (neg pap and hpv) History of abnormal pap smear: Yes (hx leep, 09/25 ascus) Date of Mammogram: 10/27/23 (Birad 1) Review of Systems Const All systems reviewed & are unremarkable except as noted in HPI and below Reports as per HPI Eyes Reports no additional complaints ENT Reports no additional complaints Card Reports no additional complaints Resp Reports no additional complaints GI Reports as per HPI and Reports no additional complaints Reports as per HPI Musc Reports no additional complaints Skin/Breast Reports as per HPI Neuro Reports no additional complaints Psych Reports no additional complaints Endo Reports no additional complaints Sami/Lymph Reports no additional complaints Aller/Immun Reports no additional complaints Physical Exam Vital Signs: Last Vital Signs BP 114/76 06/04/24 09:05 BMI result Body Mass Index 27.0 Const General: cooperative, healthy appearing, no acute distress, well developed and alert Orientation/consciousness: patient oriented x3 HEENT Head: Yes normal to inspection Eyes General: appearance normal, both eyes and all related structures Neck Neck: Yes normal visual inspection Thyroid: Thyroid normal Chest Chest palpation & inspection: normal inspection of the chest and other (no puc kering, dimpling, peau de orange, retraction, discharge, masses) Breast/axilla inspection: normal inspection of the breasts Breast/axilla palpation: normal palpation of the breasts Resp Effort & Inspection: normal respiratory effort GI Inspection: Yes normal to inspection Palpation (GI): Soft to palpation Rectal Exam - Female: deferred General: Yes bladder normal to palpation External Female Exam: normal external appearance and normal appearance of the urethra Speculum Exam - Vagina: normal appearance of the vagina, normal palpation and normal vaginal discharge Speculum Exam - Cervix: normal appearance of the cervix and normal palpation Bimanual exam- vagina & uterus: normal bimanual exam, normal palpation, uterine size normal, bladder normal to palpation, normal palpation and non-tender Bimanual Exam- Adnexa, other: no masses Skin General skin exam: no rashes or lesions noted Rashes: no rashes Neuro General: patient oriented x3 Cognition (Neuro): normal cognition Extrem General: Yes normal to inspection Psych Attitude: cooperative Thought process: Normal thought process present Assessment & Plan Assessment & Plan (1) Encounter for well woman exam with routine gynecological exam: Code(s): Z01.419 - Encounter for gynecological examination (general) (routine) without abnormal findings Category: Medical Plan Discussed: Current recommendations for pap smears per ASCCP guidelines. Pap obtained. BV and GC and chlamydia cultures taken. Breast awareness, periodic self breast exams and yearly mammogram. Maintain a healthy lifestyle, well balanced diet including Calcium 1,200 mg and Vitamin D 600 IU daily, and routine exercise. Use of condoms for STI prevention if indicated. Monitor menstrual cycles, report any unscheduled bleeding, bleeding episodes <24 days apart or heavy/prolonged menstrual bleeding. Call the office for a follow up for any concerns. Menopause diagnosed after 12 consecutive months of no cycles. Patient verbalizes understanding and agrees to the plan of care. She was given opportunity to ask questions and all questions were answered to the best of my ability. Sign up for patient portal. RTO in 1 year for annual director of mechanical engineering exam. This note is constructed using voice recognition software. While every effort has been made to ensure accuracy, paper machine backtender errors may have been included. Orders: Orders Bacterial Vaginosis Panel Today Z20.2 - Contact with and (suspected) exposure to infections with a predominantly sexual mode of transmission CT NG by PCR Today Z20.2 - Contact with and (suspected) exposure to infections with a predominantly sexual mode of transmission HIV Ab/Ag Today Z20.2 - Contact with and (suspected) exposure to infections with a predominantly sexual mode of transmission Hepatitis C Antibody Reflex Today Z20.2 - Contact with and (suspected) exposure to infections with a predominantly sexual mode of transmission Syphilis Screen Today Z20.2 - Contact with and (suspected) exposure to infections with a predominantly sexual mode of transmission PAP + HPV E6/E7 rfx 18/45 Today Z01.419 - Encounter for gynecological examination (general) (routine) without abnormal findings Hepatitis B Core Antibody Today Z20.2 - Contact with and (suspected) exposure to infections with a predominantly sexual mode of transmission Coding Level of Care Code Est Pt Prev Care 40-64y(56576) Diagnoses Encounter for well woman exam with routine gynecological exam Z01.419
[2024-06-04 09:05] VITALS: BP 114/76; BMI 27.0
== END 2024-06-04 09:50 | disposition home or self-care (01) ==
PROVIDERS: PCP Internal Medicine; Visit Provider Advanced Practice Midwife
DX: Z01.419 Encounter for gynecological examination (general) (routine) without abnormal findings (principal)
CPT/HCPCS: 99396

== ENCOUNTER 2024-06-04 09:01 | Outpatient (REF) | payer OTHER, SELFPAY ==
[2024-06-04 11:32] LABS: Syphilis Screen Nonreactive (Nonreactive)
[2024-06-04 11:42] LABS: HBc Num1 0.13 S/CO (0.00-0.79); HIV AB/AG Nonreactive (Nonreactive); HIV Num 1 0.03 S/CO (0.00-0.99); Hepatitis B Core Antibody Nonreactive (Nonreactive); ~HepC Num1 0.12 S/CO (0.00-0.79); ~Hepatitis C Antibody Nonreactive (Nonreactive)
[2024-06-04 16:22] LABS: Bacterial Vaginosis PCR POSITIVE (Negative); Candida Group PCR NOT DETECTED (Not Detect); Candida glab krusei PCR NOT DETECTED (Not Detect); Trichomonas vaginalis PCR NOT DETECTED (Not Detect)
[2024-06-04 17:01] LABS: CT PCR NOT DETECTED (Not Detect.); NG PCR NOT DETECTED (Not Detect.)
[2024-06-09 15:43] LABS: HPV mRNA E6/E7 Not Detected (Not Detected)
== END 2024-06-04 09:02 | disposition home or self-care (01) ==
LOC: HO.LAB 09:01
PROVIDERS: PCP Internal Medicine; Visit Provider Advanced Practice Midwife
DX: Z01.419 Encounter for gynecological examination (general) (routine) without abnormal findings (principal); Z20.2 Contact with and (suspected) exposure to infections with a predominantly sexual mode of transmission
CPT/HCPCS: 0352U; 36415; 86704; 86780; 86803; 87389; 87491; 87591; 87624; 88175

== ENCOUNTER 2024-06-04 09:44 | Outpatient (REF) | payer OTHER, SELFPAY | END 2024-06-04 09:45 | disposition home or self-care (01) | LOC: HO.LNP 09:44 | PROVIDERS: Visit Provider Advanced Practice Midwife | DX: Z13.89 Encounter for screening for other disorder (principal) ==

== ENCOUNTER 2024-11-21 08:54 | Outpatient (REF) | payer OTHER, SELFPAY ==
--- OUTSIDE RECORDS SUMMARY | 2024-11-21 09:14 | XMS_ITS | Clinical Summary ---
Author Organization [employer] [facility] Address [address] [place] [address] Care Team Providers Care Transit Mix Operator Name Role Phone Unavailable Primary Care Provider Unavailabl e Allergies No known active allergies Medications No known medications Social History Tobacco Use Types Packs/Day Years Used Date Smoking Tobacco: Never Assessed Comments Unknown Sex and Gender Information Value Date Recorded Sex Assigned at Female 07/10/2022 10:20 AM EDT Legal Sex Female 10:20 AM EDT Gender Identity Female 07/10/2022 10:20 AM EDT Sexual Orientation Choose not to disclose 2021 10:20 AM EDT Last Filed Vital Signs Vital Sign Reading Time Taken Comments Blood Pressure 96/64 01/03/2023 9:49 AM EDT Pulse - - Temperature - - Respiratory Rate - - Oxygen Saturation - - Inhaled Oxygen Concentration - - Weight - - Height - - Body Mass Index - - Plan of Treatment Health Maintenance Due Date Last Done Comments CT Colonography 1972 Colonoscopy 1972 Colorectal Cancer Screening 1972 Dental Oral Exam 1972 Dental Prophylaxis 1972 Dental X-Ray: Bitewings 1972 Dental X-Ray: Full Mouth 1972 Depression Screening 1972 FIT DNA/Cologuard 1972 FIT 1972 FOBT 1972 HIV Screening 1972 SDOH Screening 1972 Sigmoidoscopy 1972 Alcohol/Substance Use Screening 1984 Tobacco Screening 1984 Family Planning (PISQ) 1987 Hepatitis C Screening 1990 Hepatitis B Vaccines (1 of 3 - 19+ 3-dose series) 1991 Pap Smear 1993 Cervical Cancer Screening 2002 HPV/Cotest 2002 Mammogram 2012 Pneumococcal Vaccine: 50+ Years (1 of 1 - PCV) 2022 Zoster Vaccines (2 of 2) 12/05/2022 10/10/2022 COVID-19 Vaccine (3 - 2023-2 5 season) 2024 06/16/2021, 05/25/2021 Influenza Vaccine (#1) 2024 9, 06/04/2018 DTaP/Tdap/Td Vaccines (2 - T d or Tdap) 12/21/2031 12/20/2021 RSV Patients and Patients Aged 60 years or older (1 - 1-dose 75+ series) 2047 HIB Vaccines Aged Out No longer eligi ble based on patient's age to complete this topic HPV Vaccines Aged Out No longer eligi ble based on patient's age to complete this topic Hepatitis A Vaccines Aged Out No long er eligible based on patient's age to complete this topic IPV Vaccines Aged Out No longer eligi ble based on patient's age to complete this topic Meningococcal Vaccine Aged Out No ana monica eligible based on patient's age to complete this topic Pneumococcal Vaccine: Pediatrics (0 to 5 Years) and At-Risk Patients (6 to 49) Years) Aged Out No longer eligible b ased on patient's age to complete this topic RSV under 20 months Aged Out No longe r eligible based on patient's age to complete this topic Rotavirus Vaccines Aged Out No longer eligible based on patient's age to complete this topic
--- OUTSIDE RECORDS SUMMARY | 2024-11-21 09:14 | XMS_ITS | Data Portability ---
Author Organization ELIJAH Hernández s, [address] Address [address] [place] [address] Assessment No assessment recorded. Plan of Treatment Reminders Order Date Submit Date Provider Last Modified By Organization Details Last Modified Time Details Appointments None recorded. Lab rapid SARS CoV 2 Ag, QL IA, respiratory specimen 2022 023 [place] [address] [address], [address] [place] [address], [address], 3 13:05:47 rapid flu (A+B) 2022 023 [place] [address] 21005_[facility], [address] [place] [address], [address], 3 13:05:47 Referral None recorded. Procedures None recorded. Surgeries None recorded. Imaging None recorded. Medication Orders amoxicillin 875 mg tablet 2022 023 [facility]armacy #[id number], [address] [place], [address], 3 13:15:48 fexofenadin e 60 mg-pseudoep hedrine ER 120 mg tablet,ext. release,12 hr 2022 023 [facility]/Pharmacy #0693, [address] [place], [address], 3 13:15:48 fluticasone propionate 50 mcg/actuati on nasal spray,suspe nsion 2022 023 [facility] [address] [place], [address], 13:15:49 Patient TargetsNo targets recorded. Patient Instructions Encounter Date Encounter Id Patient Instructions Last Modified By Organization Details Last Modified Time 01/08/2023 [id number] upper respirator y infection (cold): care instructions [email or web address] Not available 01/08/2023 13:15:46 Reason for Referral None Reported. Results Created Date Observation Date Name Description Value Unit Range Abnormal Flag Note LastModifiedBy Organization Detail LastModifiedTime 01/09/20 23 01/08/2023 rapid SARS CoV 2 Ag, QL IA, respi rator y speci men Unknown Analyte Normal =Negat alo Not Available [address] [place], [address], 01/08/2023 12:30:37 01/09/20 23 01/08/2023 rapid SARS CoV 2 Ag, QL IA, respi rator y speci men Unknown Analyte negati ve Not Available [address] [place] [address] [place], [address], 01/08/2023 12:30:37 01/09/20 23 01/08/2023 rapid flu (A+B) Unknown Analyte Normal = Negati ve Not Available [address] [place] [address] [place], [address], 01/08/2023 12:30:43 01/09/20 23 01/08/2023 rapid flu (A+B) Unknown Analyte Normal = Negati ve Not Available [address] [place] [address] [place], [address], 01/08/2023 12:30:43 01/09/20 23 01/08/2023 rapid flu (A+B) Unknown Analyte negati ve Not Available [address] [place] [address] [place], [address], 01/08/2023 12:30:43 01/09/20 23 01/08/2023 rapid flu (A+B) Unknown Analyte negati ve Not Available [address] [facility], [place], [address], 01/08/2023 12:30:43 Result Notes None recorded. Problems Name Problem SNOMED Code Status Onset Date Resolution Date Notes Provider Name and Address Organization Details Recorded Time Arthritis 7743701 Active 023 ELIJAH Ramirez - [facility] 01/08/2023 12:30:11 Problem Notes None recorded. Medical Equipment None Reported. Allergies No known drug allergies Medications Name Sig Start Date Stop Date Status Note LastModified by Organization Details LastModified Time meloxicam 15 mg tablet TAKE 1 TABLET BY MOUTH EVERY DAY 01/08 completed Not Available Not Available Not Available metronidazo le 0.75 % (37.5 mg/5 gram) vaginal gel INSERT 1 APPFUL VAGINALLY BEDTIME FOR 5 DAYS 01/08 completed Not Available Not Available Not Available metronidazo le 500 mg tablet TAKE 1 TABLET BY MOUTH TWICE A DAY FOR 7 DAYS WITH FOOD *AVOID ALCOHOL/V INEGAR 01/08 completed Not Available Not Available Not Available amoxicillin 875 mg tablet Take 1 tablet every 12 hours by oral route for 10 days. 2022 active Not Available Not Available Not Avai lable pantoprazol e 40 mg tablet,natalia yed release TAKE 1 TABLET BY MOUTH EVERY DAY 01/08 completed Not Available Not Available Not Available hyoscyamine 0.[address] 0.125 MG UNDER THE TONGUE 2 TO 4 TIMES DAILY NEEDED FOR DYSPEPSIA 01/08 completed Not Available Not Available Not Available fexofenadin e 60 mg-pseudoep hedrine ER 120 mg tablet,ext. release,12 hr Take 1 tablet twice a day by oral route for 5 days. 2022 active Not Available Not Available Not Avai lable fluticasone propionate 50 mcg/actuati on nasal spray,suspe nsion SPRAY 1 SPRAY EVERY DAY BY INTRANASA L ROUTE FOR 5 DAYS. active Not Available Not Available No t Available Suprep Bowel Prep Kit 17.5 gram-3.13 gram-1.6 gram oral solution DILUTE DRINK 1/2 AT 6-8 PM AND HALF AT 11 PM- 1AM 01/08 completed Not Available Not Available Not Available Linzess 145 mcg capsule TAKE 1 CAPSULE BY MOUTH EVERY DAY 01/08 completed Not Available Not Available Not Available Vitals Date Recorded Body height Body mass index (BMI) Body weight Respiratory rate Heart rate Oxygen saturation Oxygen saturation in Arterial blood by Pulse oximetry Body temperature Systolic blood pressure Diastolic blood pressure Provider Name and Address Organization Details Last Updated DateTime 3 154.94 cm 24.6 kg/m2 18913.0 1 g 18 /min 66 /min 97 % 97 % 98.3 [degF] 105 mm[Hg] 73 mm[Hg] TOMAS Zapien PA - [facility] 12:32:24 Social History Question Answer Notes LastModified by Organizat ion Details LastModified Time Tobacco Smoking Status Never Smoker TOMAS sutherland PA - [facility] 01/08/2023 12:30:21 What Is Your Level Of Alcohol Consumption? Occasional Information not available 01/08/2023 What Is Your Water Source? City Information not available 01/08/2023 What Is Your Heat Source? Other Information not available 01/08/2023 Have You Had Direct Contact, Or Contact During Intimacy, With Monkeypox Rash, Scabs, Or Body Fluids From A Person With Monkeypox? No Information not available 01/08/2023 Do You Use Any Illicit Or Recreational Drugs? No Information not available 01/08/2023 Have You Recently Traveled Abroad? No Information not available 01/08/2023 Do You Or Have You Ever Used Any Other Forms Of Tobacco Or Nicotine? No Information not available 01/08/2023 Sex: Unknown Functional Status None recorded. Mental Status None recorded. Family History Relationship Description Onset Age of this Age Resolved Age Notes LastModified by Organization Details LastModified Time Father No current problems or disability Not available 12:30:13 Mother No current problems or disability Not available 12:30:13 Medical History No medical history recorded. Gynecological HistoryNo gynecological history recorded. Obstetrics History GPAL:G 0 P 0 0 0 0 Past Encounters Encounter ID Performer Location Encounter Start Date Encounter Closed Date Diagnosis/Indication Diagnosis SNOMED-CT Code Diagnosis ICD10 Code Diagnosis Note [id number] [address] [address] [facility] [place] [address] 05/25/2019 11:18:02 05/25/2019 11:56:34 [id number] [address] [facility] [place] [address] 06/29/2016 08:59:26 06/29/2016 09:41:13 [id number] [address] [place] [address] [place] [address] 12/18/2016 09:35:41 12/18/2016 10:44:33 [id number] [address] [place] [address] [place] [address] 04/04/2022 16:17:00 04/04/2022 17:38:25 [id number] [address] [facility] [place] [address] 01/10/2021 10:48:51 01/10/2021 12:00:12 [id number] [address] [facility] [place] [address] 06/17/2020 08:30:21 06/17/2020 10:22:09 [id number] [address] [facility] [place] [address] 01/31/2021 08:40:17 01/31/2021 09:31:56 [id number] [address] [facility] [place] [address] 09/12/2018 13:04:09 09/12/2018 14:02:51 [id number] [address] [facility] [place] [address] 02/07/2019 13:05:09 02/07/2019 14:02:14 [id number] Rosario Orozco MD [address] [place] [address] 01/08/2023 10:46:30 01/08/2023 13:16:07 Upper respiratory infection 44619000 J06.9 Acute righ t otitis media 602054448 H66.91 Possible secondary ear infection. discussed watching and waiting with antibiotic s. If viral will resolve on own. Health Concerns Section Related Observation LastModified by Organization Detai ls LastModified Time None Recorded Concern Status LastModified by Organization Details LastModified Time None Recorded Advance Directives Directive None Recorded Payers Encounter Date Sequence Insurance Name Policy Number Policy Smith Covered Member ID Smith Member ID Guarantor Name 06/17/2020 1 [facility] [id number] Lela Inder [id number] Lela Inder 01/10/2021 1 [facility] [id number] Lela Inder [id number] Lela Inder 01/31/2021 1 [facility] [id number] Lela Inder [id number] Lela Inder 04/04/2022 1 [facility] [id number] Lela Inder [id number] Lela Inder 01/08/2023 1 [facility] [id number] Lela Inder [id number] Lela Inder Notes Date Note Type Note Provider Name and Address Organization Details Recorded Time 01/08/2023 text/html CoughReported bypatient.Associate d Symptoms:no chest pain; no nausea; no vomiting;chills Rosario Orozco MD [facility] [place], [address], [place] - [facility] 01/08/2023 15:48:56 OBGyn Episode No OBEpisode recorded.
== END 2024-11-21 08:55 | disposition home or self-care (01) ==
LOC: HO.MAMMO 08:54
PROVIDERS: PCP Internal Medicine; Visit Provider Internal Medicine
DX: Z12.31 Encounter for screening mammogram for malignant neoplasm of breast (principal)
CPT/HCPCS: 77063; 77067

== ENCOUNTER → 2024-11-21 09:30 | Outpatient (BNV) | payer OTHER, SELFPAY | PROVIDERS: PCP Internal Medicine; Visit Provider Internal Medicine | DX: Z12.31 Encounter for screening mammogram for malignant neoplasm of breast (principal) | CPT/HCPCS: 77063; 77067 ==

== ENCOUNTER 2024-12-15 08:50 | Outpatient (AMB) | payer OTHER, SELFPAY ==
--- OUTSIDE RECORDS SUMMARY | 2024-12-15 09:35 | XMS_ITS | Clinical Summary ---
Author Organization [employer] [facility] Address [address] [facility] [address] [place] [address] Care Team Providers Care Fabrication Operator Name Role Phone Unavailable Primary Care [...]
--- OUTSIDE RECORDS SUMMARY | 2024-12-15 09:35 | XMS_ITS | Data Portability ---
Author Organization ELIJAH Hernández s, [address] Address [address] [place] [address] Assessment No assessment recorded. Plan of Treatment Reminders Order Date Submit Date Provider Last Modified By Organization Details Last Modified Time Details Appointments None recorded. Lab rapid SARS CoV 2 Ag, QL IA, respiratory specimen 2022 023 [place] [address] [address] [facility], [address] [place] [address], [address], 3 13:05:47 rapid flu (A+B) 2022 023 [place] [address] [address] [facility], [address] [place] [address], [address], 3 13:05:47 Referral None recorded. Procedures None recorded. Surgeries None recorded. Imaging None recorded. Medication Orders amoxicillin 875 mg tablet 2022 023 [facility]/Pharmacy #0693, [address] [place], [address], 3 13:15:48 fexofenadin e 60 mg-pseudoep hedrine ER 120 mg tablet,ext. release,12 hr 2022 023 [facility]/Pharmacy #0693, [address] [place], [address], 3 13:15:48 fluticasone propionate 50 mcg/actuati on nasal spray,suspe nsion 2022 023 [facility] [address] [place], [address], 13:15:49 Patient TargetsNo targets recorded. Patient Instructions Encounter Date Encounter Id Patient Instructions Last Modified By Organization Details Last Modified Time 01/08/2023 [id number] upper respirator y infection (cold): care instructions [email or web address] Not available 01/08/2023 13:15:46 Reason for Referral None Reported. Results Created Date Observation Date Name Description Value Unit Range Abnormal Flag Note LastModifiedBy Organization Detail LastModifiedTime 01/09/20 23 01/08/2023 rapid SARS CoV 2 Ag, QL IA, respi rator y speci men Unknown Analyte Normal =Negat alo Not Available [address] [place], [address], 01/08/2023 12:30:37 01/09/20 23 01/08/2023 rapid SARS CoV 2 Ag, QL IA, respi rator y speci men Unknown Analyte negati ve Not Available [address] [place] [address] [place], [address], 01/08/2023 12:30:37 01/09/20 23 01/08/2023 rapid flu (A+B) Unknown Analyte Normal = Negati ve Not Available [address] [place] [address] [place], [address], 01/08/2023 12:30:43 01/09/20 23 01/08/2023 rapid flu (A+B) Unknown Analyte Normal = Negati ve Not Available [address] [place] [address] [place], [address], 01/08/2023 12:30:43 01/09/20 23 01/08/2023 rapid flu (A+B) Unknown Analyte negati ve Not Available [address] [place] [address] [place], [address], 01/08/2023 12:30:43 01/09/20 23 01/08/2023 rapid flu (A+B) Unknown Analyte negati ve Not Available [address] [facility], [place], [address], 01/08/2023 12:30:43 Result Notes None recorded. Problems Name Problem SNOMED Code Status Onset Date Resolution Date Notes Provider Name and Address Organization Details Recorded Time Arthritis 8009299 Active 023 ELIJAH Ramirez - [facility] [...] Updated DateTime 3 154.94 cm 24.6 kg/m2 84330.0 1 g 18 /min 66 /min 97 % 97 % 98.3 [degF] 105 mm[Hg] 73 mm[Hg] TOMAS Zapien PA - [facility] 12:32:24 Social History Question Answer Notes [...] SNOMED-CT Code Diagnosis ICD10 Code Diagnosis Note [id number] [address] [facility] [facility] [place] [address] 05/25/2019 11:18:02 05/25/2019 11:56:34 [id number] [address] [facility] [place] [address] 06/29/2016 08:59:26 06/29/2016 09:41:13 [id number] [address] [place] [address] [place] [address] 12/18/2016 09:35:41 12/18/2016 10:44:33 [id number] [address] [place] [address] [place] [address] 04/04/2022 16:17:00 04/04/2022 17:38:25 [id number] [address] [facility] [place] [address] 01/10/2021 10:48:51 01/10/2021 12:00:12 [id number] [address] [facility] [place] [address] 06/17/2020 08:30:21 06/17/2020 10:22:09 [id number] [address] [facility] [place] [address] 01/31/2021 08:40:17 01/31/2021 09:31:56 [id number] [address] [facility] [place] [address] 09/12/2018 13:04:09 09/12/2018 14:02:51 [id number] [address] [facility] [place] [address] 02/07/2019 13:05:09 02/07/2019 14:02:14 [id number] Rosario Orozco MD [address] [place] [address] 01/08/2023 10:46:30 01/08/2023 13:16:07 Upper respiratory infection 28198062 J06.9 Acute righ t otitis media 836928764 H66.91 Possible secondary ear infection. discussed watching [...] Smith Member ID Guarantor Name 06/17/2020 1 [facility] [id number] Lela Inder [id number] Lela Inder 01/10/2021 1 [facility] [id number] Lela Inder [id number] Lela Inder 01/31/2021 1 [facility] [id number] Lela Inder [id number] Lela Inder 04/04/2022 1 [facility] [id number] Lela Inder [id number] Lela Inder 01/08/2023 1 [facility] [id number] Lela Inder [id number] Lela Inder Notes Date Note Type Note Provider Name and Address Organization Details Recorded Time 01/08/2023 text/html CoughReported bypatient.Associate d Symptoms:no chest pain; no nausea; no vomiting;chills Rosario Orozco MD [facility] [place], [address], [place] - [facility] 01/08/2023 15:48:56 OBGyn Episode No OBEpisode recorded.
--- NOTE | 2024-12-15 09:40 | AM.OFFWIN_ITS ---
Intake Vital Signs 12/15/24 09:41 Height 5 ft 1 in Weight 139 lb BMI 26.3 BP 110/64 Blood Pressure Location Rt brachial Position Sitting Pulse 64 Pulse Source Pulse Oximeter Temp 98.3 F Temp Source Oral Pulse Oximetry (%) 98 Oxygen Delivery Method Room Air Intake Visit Reasons: EP ? stomach bug Intake Note: Patient here for diarrhea, vomiting, chills that has been present for about 2 weeks and worsening. Patient Tobacco Use Status: Never used Tobacco Allergies No Known Allergies Allergy (Verified 12/15/24 09:42) Do you need a note to return to daycare/school/sports/work: Yes HPI HPI Comments History of Present Illness Details 54 y/o Female patient who presents to [facility] walk in clinic with c/o diarrhea, vomiting, and chills that has been present for about 2 weeks and worsening. [facility] Medical History (Updated 12/15/24 @ 10:15 by Brianna Lundberg NP) Nausea vomiting and diarrhea Gastritis COVID-19 virus infection Abnormal Pap smear of cervix GERD (gastroesophageal reflux disease) Family history of colon cancer Surgical History History of eyelid surgery History of hysteroscopy Hx of hemorrhoidectomy S/P bilateral breast lumpectomy History of loop electrical excision procedure (LEEP) History of esophagogastroduodenoscopy (EGD) Hx of colonoscopy Hx of breast biopsy Family History Father Patient's father is Lung cancer Diabetes Myocardial infarction Mother Hypertension Intestinal cancer Bladder cancer Cholangiocarcinoma Ovarian cancer Colon cancer Sister Lymphoma Patient's sister is Brother Brain aneurysm Social History Household Members: None Housing: Apartment Alcohol intake: current Alcohol intake frequency: holidays/special occasions only Alcohol type: wine Patient Tobacco Use Status: Never used Tobacco e-Cigarette/Vaping Use: Never Used Second Hand Smoke Exposure: No service: No Current occupational status: employed 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 Cognitive needs: No Hearing needs: No Vision needs: No Female Reproductive History Menstrual Age of Menarche: 11 Review of Systems Const All systems reviewed & are unremarkable except as noted in HPI and below Physical Exam Vital Signs: Last Vital Signs Temp 98.3 F 12/15/24 09:41 Pulse 64 12/15/24 09:41 BP 110/64 12/15/24 09:41 Pulse Ox 98 12/15/24 09:41 Oxygen Delivery Method Room Air 12/15/24 09:41 BMI result Body Mass Index 26.3 Const General: no acute distress Nutritional Appearance: well nourished Orientation/consciousness: patient oriented x3 Resp Effort & Inspection: normal respiratory effort Cardio Heart sounds: S1 normal heart sound present and S2 normal heart sound present GI Inspection: No distended Palpation (GI): Soft to palpation, not firm, Tenderness to palpation present (GI) (Generalized Tenderness.), no guarding, not rigid and No hepatosplenomegaly present Auscultation: normal bowel sounds Rectal Exam - Female: deferred Neuro General: patient oriented x3, gait normal and moves all extremities Psych Speech and movement: Normal speech and movement present Assessment & Plan Assessment & Plan (1) Gastritis: Code(s): K29.70 - Gastritis, unspecified, without bleeding Qualifiers: Chronicity: acute Gastritis bleeding: without bleeding Gastritis type: other gastritis Qualified Code(s): K29.00 - Acute gastritis without bleeding Plan: Ordered Stool Sample Ordered GI Panel, C-Diff and H.Pylori Advised to Use Imodium or Pepto-Bismal (2) Nausea vomiting and diarrhea: Code(s): R11.2 - Nausea with vomiting, unspecified; R19.7 - Diarrhea, unspecified Plan: Ordered Stool Sample Ordered GI Panel, C-Diff and H.Pylori Advised to Use Imodium or Pepto-Bismal Avoid Spicy, Oily foods BLAND diet Orders: Orders GI Panel Today K29.00 - Acute gastritis without bleeding, R11.2 - Nausea with vomiting, unspecified, R19.7 - Diarrhea, unspecified H pylori Ag Stool Today K29.00 - Acute gastritis without bleeding, R11.2 - Nausea with vomiting, unspecified, R19.7 - Diarrhea, unspecified CDiff Gene PCR Today K29.00 - Acute gastritis without bleeding, R11.2 - Nausea with vomiting, unspecified, R19.7 - Diarrhea, unspecified Coding Level of Care Code Est Pt Level 4 (55980) Diagnoses Other acute gastritis without hemorrhage K29.00 Chronicity: acute Gastritis bleeding: without bleeding Gastritis type: other gastritis Nausea vomiting and diarrhea R11.2; R19.7 Time Spent (min) 20
[2024-12-15 09:41] VITALS: BP 110/64; PULSE 64; TEMP 36.8; O2SAT 98; BMI 26.3
== END 2024-12-15 10:26 | disposition home or self-care (01) ==
PROVIDERS: PCP Internal Medicine; Visit Provider Nurse Practitioner Family
DX: K29.00 Acute gastritis without bleeding (principal); R11.2 Nausea with vomiting, unspecified; R19.7 Diarrhea, unspecified

== ENCOUNTER → 2024-12-15 08:50 | Outpatient (BNVA) | payer OTHER, SELFPAY | PROVIDERS: PCP Internal Medicine; Visit Provider Nurse Practitioner Family | DX: Z13.89 Encounter for screening for other disorder (principal) ==

== ENCOUNTER 2025-06-10 07:20 | Outpatient (REF) | payer OTHER, SELFPAY ==
[2025-06-10 10:04] LABS: HBsAGNum1 0.33 S/CO (0.00-0.99); HIV Num 1 0.06 S/CO (0.00-0.99); Hepatitis B Surface Antigen Negative (Negative); ~HepC Num1 0.07 S/CO (0.00-0.79); ~Hepatitis C Antibody Nonreactive (Nonreactive)
[2025-06-10 10:05] LABS: Syphilis Screen Nonreactive (Nonreactive)
[2025-06-11 05:51] LABS: Bacterial Vaginosis PCR NEGATIVE (Negative); Candida Group PCR NOT DETECTED (Not Detect); Candida glab krusei PCR NOT DETECTED (Not Detect); Trichomonas vaginalis PCR NOT DETECTED (Not Detect)
[2025-06-11 06:21] LABS: CT PCR NOT DETECTED (Not Detect.); NG PCR NOT DETECTED (Not Detect.)
== END 2025-06-10 07:21 | disposition home or self-care (01) ==
LOC: HO.LAB 07:20
PROVIDERS: PCP Internal Medicine; Visit Provider Obstetrics & Gynecology
DX: Z01.419 Encounter for gynecological examination (general) (routine) without abnormal findings (principal); N94.9 Unspecified condition associated with female genital organs and menstrual cycle; Z20.2 Contact with and (suspected) exposure to infections with a predominantly sexual mode of transmission; Z11.4 Encounter for screening for human immunodeficiency virus [HIV]; Z11.59 Encounter for screening for other viral diseases
CPT/HCPCS: 36415; 81515; 86780; 86803; 87340; 87389; 87491; 87591

== ENCOUNTER 2025-06-10 07:20 | Outpatient (AMB) | payer OTHER, SELFPAY ==
[2025-06-10 07:21] VITALS: BP 114/68; BMI 26.4
--- NOTE | 2025-06-10 07:21 | A.OFFVIS_ITS ---
Vital Signs 06/10/25 07:21 Height 5 ft 1 in Weight 140 lb BMI 26.4 BP 114/68 Intake Visit Reasons: annual Insulation Technician Required: No Information Interpreted: non-clinical & clinical Manager Corporate Responsibility: Manager Corporate Responsibility Present (Ana Maria BAH) Accompanied by: Self / Same As Patient Allergies No Known Allergies Allergy (Verified 06/10/25 07:22) Post menopausal: Yes HPI Comments Details: Presenting for annual exam. Complaining of vaginal discharge with no vulvovaginal itching or foul odor Last Pap/HPV was negative in 10/02 Last Mammogram was BI-RADS 2 in 12/02 Last colonoscopy was in 08/01, the recommendation was to repeat in 3-[address] [facility] Medical History Nausea vomiting and diarrhea Gastritis COVID-19 virus infection Abnormal Pap smear of cervix GERD (gastroesophageal reflux disease) Family history of colon cancer Surgical History History of eyelid surgery History of hysteroscopy Hx of hemorrhoidectomy S/P bilateral breast lumpectomy History of loop electrical excision procedure (LEEP) History of esophagogastroduodenoscopy (EGD) Hx of colonoscopy Hx of breast biopsy Family History Father Patient's father is Lung cancer Diabetes Myocardial infarction Mother Hypertension Intestinal cancer Bladder cancer Cholangiocarcinoma Ovarian cancer Colon cancer Sister Lymphoma Patient's sister is Brother Brain aneurysm Social History Household Members: None Housing: Apartment Alcohol intake: current Alcohol intake frequency: holidays/special occasions only Alcohol type: wine Patient Tobacco Use Status: Never used Tobacco e-Cigarette/Vaping Use: Never Used Second Hand Smoke Exposure: No service: No Current occupational status: employed 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 Cognitive needs: No Hearing needs: No Vision needs: No Female Reproductive History Menstrual Age of Menarche: 11 Total pregnancies: 1 Full term: 1 Number of Living Children: 1 Date of last pap smear: 10/05/22 Date of Mammogram: 11/21/24 Review of Systems Const All systems reviewed & are unremarkable except as noted in HPI and below Card Reports as per HPI Resp Reports as per HPI GI Reports as per HPI and Reports no additional complaints Reports as per HPI Physical Exam Vital Signs: Last Vital Signs BP 114/68 06/10/25 07:21 BMI result Body Mass Index 26.4 Const General: cooperative, healthy appearing and comfortable Chest Chest palpation & inspection: normal inspection of the chest and normal palpation of entire chest wall Breast/axilla inspection: normal inspection of the breasts and normal inspection of the axillae Breast/axilla palpation: normal palpation of the breasts, normal palpation of the axillae and no axillary lymphadenopathy Resp Effort & Inspection: normal respiratory effort Auscultation: clear to auscultation bilaterally Percussion: percussion normal Cardio Palpation: normal PMI Rate: regular rate Rhythm: regular rhythm Heart sounds: no murmurs and no rubs Peripheral pulses: Peripheral pulses 2+ throughout GI Inspection: Yes normal to inspection Palpation (GI): Soft to palpation, nontender, no guarding, not rigid and No hepatosplenomegaly present Percussion: Yes normal to percussion Auscultation: normal bowel sounds Rectal Exam - Female: deferred General: Yes bladder normal to palpation External Female Exam: No lesion Speculum Exam - Vagina: normal appearance of the vagina, normal palpation, normal vaginal discharge and not erythematous Speculum Exam - Cervix: normal appearance of the cervix and normal palpation Bimanual exam- vagina & uterus: normal bimanual exam, normal palpation, uterine size normal, bladder normal to palpation, consistency normal and normal palpation Bimanual Exam- Adnexa, other: normal adnexae, no masses and no tenderness Assessment & Plan Assessment & Plan (1) Well woman exam: Code(s): Z01.419 - Encounter for gynecological examination (general) (routine) without abnormal findings Category: Medical Plan: Co testing not indicated this year. Counseled the patient about the recommended dietary allowance of 1200 mg of Calcium & 600 IU of vitamin D. Instructions given the patient to schedule next screening Mammogram in 12/02. The patient was referred to GI for screening colonoscopy . The patient was instructed to perform monthly self-breast exams and schedule annual exam in a year. All questions answered and the patient verbalized understanding. (2) Adnexal fullness: Comment: Right Code(s): N94.9 - Unspecified condition associated with female genital organs and menstrual cycle Category: Medical Plan: Discussed with the patient the finding on pelvic exam, right adnexal fullness, will order pelvic ultrasound. Instructions given to patient to schedule an ultrasound follow-up appointment within 2 weeks (3) Screening for STD (sexually transmitted disease): Code(s): Z11.3 - Encounter for screening for infections with a predominantly sexual mode of transmission Category: Medical Plan: STD screening tests done includes: BV panel for trichomonas, GC/CT will send patient for serology std screening for HIV, RPR, Hep b s Ag, HepC Ab. Instructions given the patient to schedule a follow-up appointment for repeat serology screen in 6 months for possible false negatives. Orders: Orders Syphilis Screen Today Z20.2 - Contact with and (suspected) exposure to infections with a predominantly sexual mode of transmission Hepatitis B Surface Antigen Today Z20.2 - Contact with and (suspected) exposure to infections with a predominantly sexual mode of transmission Hepatitis C Antibody Today Z20.2 - Contact with and (suspected) exposure to infections with a predominantly sexual mode of transmission Bacterial Vaginosis Panel Today Z01.419 - Encounter for gynecological examination (general) (routine) without abnormal findings US pelvic and transvaginal Today N94.9 - Unspecified condition associated with female genital organs and menstrual cycle HIV Ab/Ag Today Z20.2 - Contact with and (suspected) exposure to infections with a predominantly sexual mode of transmission CT NG by PCR Vag/Cerv Today Z01.419 - Encounter for gynecological examination (general) (routine) without abnormal findings Referrals Gastroenterology Referral Z12.11 - Encounter for screening for malignant neoplasm of colon Coding Level of Care Code Est Pt Level 3 (04461) Est Pt Prev Care 40-64y(23415) Diagnoses Well woman exam Z01.419 Adnexal fullness N94.9 Screening for STD (sexually transmitted disease) Z11.3
--- OUTSIDE RECORDS SUMMARY | 2025-06-10 07:23 | XMS_ITS | Clinical Summary ---
Author Organization [employer] Address [address] [facility] [address] [place] [address] Care Team Providers Care Resource Forester Name Role Phone Unavailable Primary Care Provider Unavailabl e Allergies No known active allergies Medications No known medications Active Problems Problem Noted Date Diagnosed Date Dental calculus 04/02/2025 Staining of teeth 04/02/2025 Encounters Date Type Department Care Team Description 04/02/2025 3:00 PM EDT Office Visit [facility] [address] [place] [address] Tammie Chang Dental calculus (Primary Dx); Staining of teeth from Last 3 Months Social History Tobacco Use Types Packs/Day Years Used Date Smoking Tobacco: Never Passive Smoke Exposure: Never Smokeless Tobacco: Never Tobacco Cessation:Counseling Given: Not Answered Comments Unknown Sex and Gender Information Value Date Recorded Sex Assigned at Female 07/10/2022 10:20 AM EDT Legal Sex Female 10:20 AM EDT Gender Identity Female 07/10/2022 10:20 AM EDT Sexual Orientation Choose not to disclose 2021 10:20 AM EDT Last Filed Vital Signs Vital Sign Reading Time Taken Comments Blood Pressure 98/66 04/02/2025 2:56 PM EDT Pulse - - Temperature - - [...] Screening 1972 SDOH Screening 1972 Sigmoidoscopy 1972 Disability Screening 1972 Alcohol/Substance Use Screening 1984 Hepatitis C Screening 1990 Hepatitis B Vaccines (1 of 3 - 19+ 3-dose series) 1991 Pap Smear 1993 Cervical Cancer Screening 2002 HPV/Cotest 2002 Mammogram 2012 Pneumococcal Vaccine: 50+ Years (1 of 1 - PCV) 2022 Zoster Vaccines (2 of 2) 12/05/2022 10/10/2022 COVID-19 Vaccine (3 - 2024-2 6 season) 2025 06/16/2021, 05/25/2021 Influenza Vaccine (#1) 2025 9, 06/04/2018 Tobacco Screening 04/02/2026 04/02/2025 DTaP/Tdap/Td Vaccines (2 - T d or [...] patient's age to complete this topic Meningococcal B Vaccine Aged Out No l onger eligible based on patient's age to complete this topic Meningococcal Vaccine Aged Out No ana monica eligible based on patient's age to complete this topic RSV under 20 months Aged Out No longe r eligible based on patient's age to complete this topic Rotavirus Vaccines Aged Out No longer eligible based on patient's age to complete this topic Procedures Procedure Name Priority Date/Time Associated Diagnosis Comments EMPLOYEE ADULT PROPHYLAXIS Routine 04/02/2025 3:00 PM EDT from Last 3 Months
== END 2025-06-10 08:05 | disposition home or self-care (01) ==
LOC: HO.HWS 07:20
PROVIDERS: PCP Internal Medicine; Visit Provider Obstetrics & Gynecology
DX: Z01.419 Encounter for gynecological examination (general) (routine) without abnormal findings (principal); N94.9 Unspecified condition associated with female genital organs and menstrual cycle; Z11.3 Encounter for screening for infections with a predominantly sexual mode of transmission
CPT/HCPCS: 99213; 99396; 99459

== ENCOUNTER 2025-06-24 06:45 | Outpatient (REF) | payer OTHER, SELFPAY ==
--- NOTE | ~2025-06-24 | US_ITS ---
CLINICAL HISTORY: N94.9 - Unspecified condition associated with female genital organs and ... US pelvis transabdominal and transvaginal Comparison: 12/28/2022 Findings: Uterus measures 9 x 4.3 x 5.6 cm Normal myometrium. No endometrial lesion, 6 mm thickness. Small nabothian cysts. Right ovary 2.3 x 1.7 x 2.4 cm. Left ovary 2 x 1.3 x 1.7 cm. 1.4 cm right ovarian dominant follicle versus simple functional cyst. Otherwise unremarkable ovaries. No free fluid. IMPRESSION: 1.4 cm right ovarian dominant follicle versus simple functional cyst. Otherwise unremarkable exam. This document has been electronically signed by: Kelli Pedro MD on 06/25/2025 12:38:56
--- OUTSIDE RECORDS SUMMARY | 2025-06-24 06:47 | XMS_ITS | Clinical Summary ---
Author Organization [employer] Address [address] [facility] [address] [place] [address] Care Team Providers Care Massotherapist Name Role Phone Unavailable Primary Care Provider Unavailabl e Allergies No known active allergies Medications No known medications Active Problems Problem Noted Date Diagnosed Date Dental calculus 04/02/2025 Staining of teeth 04/02/2025 Encounters Date Type Department Care Team Description 04/02/2025 3:00 PM EDT Office Visit [facility] [address] [place] [address] Tammie Chang Dental calculus (Primary Dx); Staining [...]
== END 2025-06-24 06:46 | disposition home or self-care (01) ==
LOC: HO.US 06:45
PROVIDERS: PCP Internal Medicine; Visit Provider Obstetrics & Gynecology
DX: N94.9 Unspecified condition associated with female genital organs and menstrual cycle (principal)
CPT/HCPCS: 76830; 76856

== ENCOUNTER → 2025-06-24 06:47 | Outpatient (BNV) | payer OTHER, SELFPAY | PROVIDERS: PCP Internal Medicine; Visit Provider Radiology Diagnostic Radiology | DX: N83.01 Follicular cyst of right ovary (principal) | CPT/HCPCS: 76830; 76856 ==

== ENCOUNTER 2025-07-08 07:20 | Outpatient (AMB) | payer OTHER, SELFPAY ==
--- OUTSIDE RECORDS SUMMARY | 2025-07-08 07:23 | XMS_ITS | Clinical Summary ---
Author Organization [employer] [facility] Address [address] [facility] [facility] [address] [place] [address] Care Team Providers Care Outcomes Analyst Name Role Phone Unavailable Primary Care Provider Unavailabl e Allergies No known active allergies Medications No known medications Active Problems Problem Noted Date Diagnosed Date Dental calculus 04/02/2025 Staining of teeth 04/02/2025 Social History Tobacco Use Types Packs/Day Years [...]
--- NOTE | 2025-07-08 07:41 | A.OFFVIS_ITS ---
Intake Visit Reasons: Ultrasound results/pre op Appliance Technician: Appliance Technician Present Allergies No Known Allergies Allergy (Verified 06/10/25 07:22) Is last menstrual period known: Yes Last menstrual period: 07/08/20 Post menopausal: No Patient : No Do you need a note to return to daycare/school/sports/work: Yes (for surgery on sunday) HPI Comments Details: Presenting for ultrasound follow up done recently which showed the following: Findings: Uterus measures 9 x 4.3 x 5.6 cm Normal myometrium. No endometrial lesion, 6 mm thickness. Small nabothian cysts. Right ovary 2.3 x 1.7 x 2.4 cm. Left ovary 2 x 1.3 x 1.7 cm. 1.4 cm right ovarian dominant follicle versus simple functional cyst. Otherwise unremarkable ovaries. No free fluid. IMPRESSION: 1.4 cm right ovarian dominant follicle versus simple functional cyst. Otherwise unremarkable exam. FORMERLY [facility], [facility] Medical History Nausea vomiting and diarrhea Gastritis COVID-19 virus infection Abnormal Pap smear of cervix GERD (gastroesophageal reflux disease) Family history of colon cancer Surgical History History of eyelid surgery History of hysteroscopy Hx of hemorrhoidectomy S/P bilateral breast lumpectomy History of loop electrical excision procedure (LEEP) History of esophagogastroduodenoscopy (EGD) Hx of colonoscopy Hx of breast biopsy Family History Father Patient's father is Lung cancer Diabetes Myocardial infarction Mother Hypertension Intestinal cancer Bladder cancer Cholangiocarcinoma Ovarian cancer Colon cancer Sister Lymphoma Patient's sister is Brother Brain aneurysm Social History Household Members: None Housing: Apartment Alcohol intake: current Alcohol intake frequency: holidays/special occasions only Alcohol type: wine Patient Tobacco Use Status: Never used Tobacco e-Cigarette/Vaping Use: Never Used Second Hand Smoke Exposure: No service: No 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 occupational status: employed 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 Cognitive needs: No Hearing needs: No Vision needs: No Female Reproductive History Menstrual Age of Menarche: 11 Date of last menstrual period: 07/08/20 Total pregnancies: 2 Full term: 2 Review of Systems Card Reports as per HPI and Reports no additional complaints Resp Reports as per HPI and Reports no additional complaints GI Reports as per HPI and Reports no additional complaints Reports as per HPI Physical Exam Const General: cooperative, healthy appearing and comfortable Resp Effort & Inspection: normal respiratory effort Auscultation: clear to auscultation bilaterally Percussion: percussion normal Cardio Palpation: normal PMI Rate: regular rate Rhythm: regular rhythm Heart sounds: no murmurs and no rubs Peripheral pulses: Peripheral pulses 2+ throughout GI Inspection: Yes normal to inspection Palpation (GI): Soft to palpation, nontender, no guarding, not rigid and No hepatosplenomegaly present Percussion: Yes normal to percussion Auscultation: normal bowel sounds Rectal Exam - Female: deferred Assessment & Plan Assessment & Plan (1) Ovarian cyst: Code(s): N83.209 - Unspecified ovarian cyst, unspecified side Category: Medical Plan: Discussed with the patient the ovarian cyst by ultrasound. Discussed with the patient the Ultrasound findings, the main limitation of transvaginal ultrasonography alone as a diagnostic tool to distinguish benign from malignant masses relates to its lack of specificity and low positive predictive value for cancer. The differential diagnosis discussed with the patient includes the following but not limited to: benign and malignant gynecological and non- gynecological causes. Serum tumor marker CA 125 wnl Discussed with the patient that CA 125 is a protein associated with epithelial ovarian malignancies, but also frequently expressed at lower levels by nonmalignant tissue. Normal CA 125 levels can be found in ovarian cancer patients. Elevation of CA 125 levels may occur in nonmalignant gynecologic conditions, and in non-gynecologic cancers, It is most useful in postmenopausal women and in identifying non mucinous epithelial cancer. The CA 125 level is elevated in 80% of patients with epithelial ovarian cancer but in only 50% of patients with stage I disease. The overall sensitivity of CA 125 testing in distinguishing benign from malignant adnexal masses reportedly ranges from 61% to 90%; specificity ranges from 71% to 93%, positive predictive value ranges from 35% to 91%, and negative predictive value ranges from 67% to 90%. Discussed with the patient options of treatment , in case CA 125 is not elevated, including laparoscopy ovarian salpingo- oophorectomy vs. expectant management with repeat US in repeating pelvic US in 3-6 months from previous US. If the ovarian cyst is persistent larger and / or changes in Ultrasound appearance & became complex looking, or higher CA 125 will refer to gynecologic Oncology. All pros, cons, risks and benefits of each approach were discussed with the patient including but not limited to a delay in the diagnosis and treatment of ovarian cancer affecting the prognosis; The patient decided to go ahead with expectant management. Pelvic ultrasound ordered in three-month. All questions were answered & the patient verbalized understanding and agreed with the plan (2) Endometrial thickening on ultrasound: Code(s): R93.89 - Abnormal findings on diagnostic imaging of other specified body structures Category: Medical Plan: Discussed with the patient endometrial thickness above 4 mm in menopause , the differential diagnosis of a thickened endometrium includes but not limited to endometrial polyp, hyperplasia or carcinoma. Explained to the patient that endometrial each thickness is less predictive of endometrial neoplasia in asymptomatic patients, i.e. those without postmenopausal uterine bleeding. The sensitivity and specificity for detecting endometrial carcinoma at an endometrial thickness of >= 5mm was 83 and 72 p ercent, respectively; this is lower than in patients with bleeding. Studies have shown that postmenopausal patients without uterine bleeding who had an endometrial thickness >11 mm had an endometrial carcinoma risk of 6.7 percent; this risk is similar to postmenopausal patients with bleeding and an endometrial thickness >5 mm. Recommended endometrial sampling to rule endometrial pathology via either office endometrial biopsy or diagnostic hysteroscopy/D&C with possible polypectomy/myomectomy. All pros and cons, risks and benefits of each approach were discussed with the patient, the patient decided to proceed with hysteroscopy D&C possible polypectomy/myomectomy. Discussed with the patient the procedure , all benefits and risks including but not limited to inability to complete the procedure , insufficient endometrial tissue for a complete evaluation of the endometrial cavity , bleeding, infection, possible need for blood transfusion with all its risk ( HIV,syphilis, Hepatitis, anaphylaxis shock, others..), injury to bladder, rectum, possible need for laparoscopy/laparotomy or hysterectomy. The patient verbalized understanding and signed the consent. Instructions given the patient to stay NPO after midnight the day prior to the procedure and to take only the specific medication (s) discussed the morning of the surgical procedure and to schedule a 2 week postoperative appointment Orders: Orders US pelvic and transvaginal 3 Months N83.209 - Unspecified ovarian cyst, unspecified side CA-125 Today N83.209 - Unspecified ovarian cyst, unspecified side Coding Level of Care Code Est Pt Level 3 (99786) Diagnoses Ovarian cyst N83.209 Endometrial thickening on ultrasound R93.89
== END 2025-07-08 08:28 | disposition home or self-care (01) ==
PROVIDERS: PCP Internal Medicine; Visit Provider Obstetrics & Gynecology
DX: N83.209 Unspecified ovarian cyst, unspecified side (principal); R93.89 Abnormal findings on diagnostic imaging of other specified body structures
CPT/HCPCS: 99213

== ENCOUNTER 2025-07-08 07:20 | Outpatient (REF) | payer OTHER, SELFPAY ==
[2025-07-14 12:10] LABS: CA-125 5 U/mL (<35)
== END 2025-07-08 07:21 | disposition home or self-care (01) ==
LOC: HO.LAB 07:20
PROVIDERS: PCP Internal Medicine; Visit Provider Obstetrics & Gynecology
DX: N83.201 Unspecified ovarian cyst, right side (principal); R93.89 Abnormal findings on diagnostic imaging of other specified body structures; Z80.41 Family history of malignant neoplasm of ovary
CPT/HCPCS: 36415; 86304

== ENCOUNTER 2025-07-31 07:25 | Day surgery (SDC) | payer OTHER, SELFPAY ==
--- NOTE | 2025-07-15 09:10 | HO.ANESPROP2 ---
Documented by User: Shruthi Huddleston NP 07/15/25 09:10 HPI - Anesthesia Eval Consult details Narrative: 55yo F for D&C Hysteroscopy,possible myomectomy,possible polypectomy PMFSH Active Problems Active Problems: All Active Problems Endometrial thickening on ultrasound (Acute) Ovarian cyst (Acute) Screening for STD (sexually transmitted disease) (Acute) Adnexal fullness (Acute) Well woman exam (Acute) Nausea vomiting and diarrhea (Acute) Gastritis (Acute) Encounter for well woman exam with routine gynecological exam (Acute) Headache (Acute) Dizziness (Acute) Constipation by delayed colonic transit (Acute) Abnormal uterine bleeding (Acute) Chronic nausea (Acute) Vitamin D deficiency (Acute) Postprandial abdominal bloating (Acute) Family history of ovarian cancer (Acute) Pelvic pain (Acute) Annual physical exam (Acute) Mass of left axilla (Acute) GERD (gastroesophageal reflux disease) (Acute) Chronic idiopathic constipation (Acute) Past Medical History Medical History Nausea vomiting and diarrhea Gastritis COVID-19 virus infection Abnormal Pap smear of cervix GERD (gastroesophageal reflux disease) Family history of colon cancer Family History Family History Father Patient's father is Lung cancer Diabetes Myocardial infarction Mother Hypertension Intestinal cancer Bladder cancer Cholangiocarcinoma Ovarian cancer Colon cancer Sister Lymphoma Patient's sister is Brother Brain aneurysm Family history of problems with anesthesia: No Surgical History Surgical History History of eyelid surgery History of hysteroscopy Hx of hemorrhoidectomy S/P bilateral breast lumpectomy History of loop electrical excision procedure (LEEP) History of esophagogastroduodenoscopy (EGD) Hx of colonoscopy Hx of breast biopsy History of Problems with Anesthesia: No Social History Social History Household Members: None Housing: Apartment Alcohol intake: current Alcohol intake frequency: does not drink Alcohol type: wine Patient Tobacco Use Status: Never used Tobacco e-Cigarette/Vaping Use: Never Used Second Hand Smoke Exposure: No Have you been hit, kicked, punched, or otherwise hurt by someone within the past year? 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 Cognitive needs: No Hearing needs: No Vision needs: No Meds Allergies Allergy/AdvReac Type Severity Reaction Status Date / Time No Known Allergies Allergy Verified 06/10/25 07:22 Assessment and Plan Assessment Anesthesia Assessment: Chart Reviewed Final Anesthetic Review Family History of Problems with Anesthesia: No History of Problems with Anesthesia: No Documented by User: Syed Hand MD 07/31/25 08:43 [facility] Past Medical History Medical History Nausea vomiting and diarrhea Gastritis COVID-19 virus infection Abnormal Pap smear of cervix GERD (gastroesophageal reflux disease) Family history of colon cancer Family History Family History Father Patient's father is Lung cancer Diabetes Myocardial infarction Mother Hypertension Intestinal cancer Bladder cancer Cholangiocarcinoma Ovarian cancer Colon cancer Sister Lymphoma Patient's sister is Brother Brain aneurysm Surgical History Surgical History History of eyelid surgery History of hysteroscopy Hx of hemorrhoidectomy S/P bilateral breast lumpectomy History of loop electrical excision procedure (LEEP) History of esophagogastroduodenoscopy (EGD) Hx of colonoscopy Hx of breast biopsy Social History Social History Household Members: None Housing: Apartment Alcohol intake: current Alcohol intake frequency: does not drink Alcohol type: wine Patient Tobacco Use Status: Never used Tobacco e-Cigarette/Vaping Use: Never Used Second Hand Smoke Exposure: No Have you been hit, kicked, punched, or otherwise hurt by someone within the past year? 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 Cognitive needs: No Hearing needs: No Vision needs: No Meds Allergies Allergy/AdvReac Type Severity Reaction Status Date / Time No Known Allergies Allergy Verified 06/10/25 07:22 Exam Exam Date and Time: 07/31/25 Airway Mallampati Class: II TM Dist: >3cm Neck ROM: Full Heart: rrr Lungs: ctab vesicular Assessment and Plan Assessment Anesthesia Assessment: Anesthesia Plan Discussed Final Anesthetic Review NPO: Yes ASA Class: I Final Preanesthetic Review: No Changes in Pt Med Stat, Meds/Allgs Chart Reviewed, Consent Obtained/Reviewed and Anes Risks/Benef Reviewed Patient Risk: Low Procedure Risk: Low Anesthetic Plan Anesthetic Plan: GA Disposition: Standard PACU
[2025-07-15 11:30] VITALS: BMI 26.4
[2025-07-31 07:32] VITALS: BP 122/74; PULSE 56; RESP 20; TEMP 36.4; O2SAT 98; BMI 27.8
[2025-07-31] MEDS: Lactated Ringers 1,000 ML 100 ML IVCONT (07:49)
[2025-07-31 07:50] LABS: UPreg QC Valid YES
--- NOTE | 2025-07-31 08:47 | MHC.SHP ---
Pre-Procedural Eval Section A - 24 Hr Update-Section A only Date of Service: 07/31/25 The patient is an INPATIENT: No Changes since office visit: No Cold of Flu in the past 2 weeks, No New Medical Problems, No Changes in Medication and No Patient answered all questions The patient has been examined within 24 hours of the surgical procedure. The History & Physical has been completed within 30 days and I have reviewed it.: Yes Section B - Complete if H&P > 30 days Chief Complaint: Abnormal findings on diagnostic imaging of other Allergies: Allergies Allergy/AdvReac Type Severity Reaction Status Date / Time No Known Allergies Allergy Verified 06/10/25 07:22 Plan Diagnosis/Plan: Unchanged I have reviewed the history and physical and performed a pertinent physical examination on my patient. No changes have occurred unless specified. Time Spent With Patient Time: Total time managing care of this patient today ____ minutes.
--- NOTE | 2025-07-31 09:16 | PM.OP ---
Brief Operative Note Date of Service: 07/31/25 Pre-op diagnosis: Thickened endometrium Post-op diagnosis: same (Normal endometrial cavity) Procedure: Hysteroscopy D&C Surgeon: John Luther MD Anesthesia: GLMA Was an Business Analyst Sales Operations used for this Procedure?: No Estimated blood loss (mL): 0 Pathology: other (Endometrial Scrapping) Condition: stable Disposition: PACU
--- NOTE | 2025-07-31 09:17 | P.OP_ITS ---
Operative Note Operative Note Date of Service: 07/31/25 Narrative: Preop Diagnosis: Thick endometrium by ultrasound Operation: Diagnostic Hysteroscopy, Dilataion & Curettage Post Op Diagnosis: Normal endometrial and endocervical cavity, no evidence of pathology QBL: Minimal Anesthesia: GLMA Surgeon: John Luther MD Trimming Assembler: None Complication: None Pathology: Endometrial Scrapings Procedure: The patient was put in the dorsal lithotomy position, scrubbed, and draped in the usual manner. A sterile speculum was inserted in the patient's vagina. The anterior lip of the cervix was grasped with a single tooth tenaculum. The cervix was dilated up to 5 mm, then the scope was inserted in the patient's uterus. Inspection revealed normal endocervical & endometrial cavity with no evidence of pathology. The scope was taken out of the uterine cavity , then sharp curetting was carried on with no complications. At the end of the procedure, all instruments were taken out of the patient uterine and vaginal cavity. The single tooth tenaculum was removed and homeostasis was assured using pressure. The patient tolerated the procedure well and was transferred to the PACU in a stable condition.
[2025-07-31 09:19] VITALS: BP 105/73; PULSE 79; RESP 16; TEMP 36.4; O2SAT 97
[2025-07-31 09:20] VITALS: BP 101/66; PULSE 83; RESP 16; O2SAT 98
[2025-07-31 09:25] VITALS: BP 101/66; PULSE 83; RESP 16; O2SAT 97
[2025-07-31 09:30] VITALS: BP 106/70; PULSE 70; RESP 16; O2SAT 97
[2025-07-31 09:45] VITALS: BP 101/69; PULSE 66; RESP 16; TEMP 36.4; O2SAT 98
== END 2025-07-31 11:14 | disposition home or self-care (01) ==
PROVIDERS: PCP Internal Medicine; Visit Provider Obstetrics & Gynecology
PROC: 0UDB8ZZ Extraction of Endometrium, Via Natural or Artificial Opening Endoscopic (ICD-10-PCS; CPT 58558; principal; 2025-07-31 09:00)
DX: N85.01 Benign endometrial hyperplasia (principal); N83.209 Unspecified ovarian cyst, unspecified side; K29.70 Gastritis, unspecified, without bleeding; K21.9 Gastro-esophageal reflux disease without esophagitis; Z80.0 Family history of malignant neoplasm of digestive organs; Z98.890 Other specified postprocedural states
CPT/HCPCS: 58558; 81025; 88305; J2003; J2371; J2405; J2704; J3010

== ENCOUNTER → 2025-07-31 07:25 | Outpatient (BNV) | payer OTHER, SELFPAY | PROVIDERS: PCP Internal Medicine; Visit Provider Obstetrics & Gynecology | DX: R93.89 Abnormal findings on diagnostic imaging of other specified body structures (principal) | CPT/HCPCS: 58558 ==

== ENCOUNTER 2025-08-13 10:12 | Outpatient (AMB) | payer OTHER, SELFPAY ==
--- NOTE | 2025-08-13 10:13 | A.OFFVIS_ITS ---
Intake Visit Reasons: post op Allergies No Known Allergies Allergy (Verified 06/10/25 07:22) HPI Comments Details: The patient scheduled a telehealth visit post hysteroscopy D&C no complaints minimal vaginal bleeding no feverishness chills or abdominal pain. The pathology showed the following: Endometrium, curettage: Benign proliferative endometrium and benign endocervical glandular and squamous epithelium; no atypia or carcinoma. Comment: One fragment may be derived from a benign polyp PFSH Medical History Nausea vomiting and diarrhea Gastritis COVID-19 virus infection Abnormal Pap smear of cervix GERD (gastroesophageal reflux disease) Family history of colon cancer Surgical History History of eyelid surgery History of hysteroscopy Hx of hemorrhoidectomy S/P bilateral breast lumpectomy History of loop electrical excision procedure (LEEP) History of esophagogastroduodenoscopy (EGD) Hx of colonoscopy Hx of breast biopsy Family History Father Patient's father is Lung cancer Diabetes Myocardial infarction Mother Hypertension Intestinal cancer Bladder cancer Cholangiocarcinoma Ovarian cancer Colon cancer Sister Lymphoma Patient's sister is Brother Brain aneurysm Social History Household Members: None Housing: Apartment Alcohol intake: current Alcohol intake frequency: does not drink Alcohol type: wine Patient Tobacco Use Status: Never used Tobacco e-Cigarette/Vaping Use: Never Used Second Hand Smoke Exposure: No service: No Current occupational status: employed 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 Cognitive needs: No Hearing needs: No Vision needs: No Female Reproductive History Menstrual Age of Menarche: 11 Review of Systems Const All systems reviewed & are unremarkable except as noted in HPI and below Reports as per HPI and Reports no additional complaints GI Reports no additional complaints Reports no additional complaints Telehealth Telehealth Telehealth Platform: [facility] Location of provider rendering services: practice address Location of patient: address on file Patient Identification confirmed using: Name, : Yes Telehealth method: video Patient verbally consented to treatment: Yes Patient verbally consented to billing insurance company: Yes Patient informed of any privacy concerns related to visit: Yes Minutes spent on Phone/Video with Pt.: 4 Assessment & Plan Assessment & Plan (1) Endometrial thickening on ultrasound: Code(s): R93.89 - Abnormal findings on diagnostic imaging of other specified body structures Category: Medical Plan: Discussed with the patient the intraoperative finding and the pathology results. The patient is still premenopausal endometrial biopsies proliferative. The patient is having regular menstrual cycles. Discussed with the patient the sensitivity, specificity, positive and negative predictive value, of endometrial biopsy in detecting endometrial pathology including but not limited to endometrial hyperplasia, cancer and other pathology; instructed the patient to call in case abnormal/irregular or heavy vaginal bleeding , the next step will be to proceed with further endometrial sampling evaluation to rule out endometrial pathology. All questions answered and the patient verbalized understanding and agreed with the plan. I spent a total of 20 minutes reviewing the chart, talking to the patient via video and documenting in the medical record. Coding Level of Care Code Tele Est Pt Level 3 (85607) Diagnoses Endometrial thickening on ultrasound R93.89
--- OUTSIDE RECORDS SUMMARY | 2025-08-13 12:12 | XMS_ITS | Clinical Summary ---
Author Organization [employer] [facility] Address [address] [place] [address] Care Team Providers Care Drug Counselor Name Role Phone Unavailable Primary Care Provider [...]
== END 2025-08-13 11:10 | disposition home or self-care (01) ==
LOC: HO.HWS 10:12
PROVIDERS: PCP Internal Medicine; Visit Provider Obstetrics & Gynecology
DX: R93.89 Abnormal findings on diagnostic imaging of other specified body structures (principal)
CPT/HCPCS: 99213